=== PATIENT | male | born 1985 | race Caucasian/White ===

== ENCOUNTER 2017-04-08 21:22 | Emergency (ER) | payer MEDICAID ==
[~2017-04-08] VITALS: Ht 172.7 cm; Wt 86.5 kg
[~2017-04-08 21:22] MED LIST: ACET325T33 PO; ACET500T98 PO; AZIT250T94 PO; HYDR-906 PO; IBUP-1542 PO; IBUP200C PO; OMEP20CA16 PO; ONDA4TAB35 PO
[2017-04-08 21:24] VITALS: Ht 172.7 cm; Wt 86.5 kg
[2017-04-08] MEDS ORDERED: morphine 2 MG INJ IV STA (22:42)
[2017-04-08] MEDS ORDERED: ACETAMINOPHEN 500 MG TAB PO STA (22:42)
[2017-04-08] MEDS ORDERED: ONDANSETRON 4 MG INJ IV STA (22:42)
[2017-04-08] MEDS ORDERED: SOD CHLORIDE 0.9% 1,000 ML IV STA (22:42)
--- NOTE | 2017-04-08 23:07 | ERD ---
ER Documentation Chief Complaint Date/Time DATE: 04/08/17 TIME: 23:04 Chief Complaint upper abd pain x 2 days w/ fever HPI 31-year-old male presents here in emergency department for complaints of epigastric pain vomiting and diarrhea that started yesterday. Patient had episodes of vomiting and diarrhea, does not have any blood in the stool or black stool. Patient started to have fever today. Patient describes the pain as sharp pain, 6/10 scale, not better or worse with anything. Patient denies any hematuria or dysuria. Patient did not take any medications to help with symptoms. ROS All systems reviewed and are negative except as per history of present illness. Medications Home Meds Active Scripts Ondansetron (Ondansetron Odt) 4 Mg Tab.rapdis, 4 MG PO Q8 Y for NAUSEA AND/OR VOMITING, #30 TAB Prov:ARI WEN NP 04/09/17 Ibuprofen* (Motrin*) 600 Mg Tab, 600 MG PO Q6H Y for PAIN AND OR ELEVATED TEMP, #30 TAB Prov:ARI WEN NP 04/09/17 Dicyclomine Hcl* (Bentyl*) 10 Mg Capsule, 10 MG PO QID, #20 CAP Prov:ARI WEN NP 04/09/17 Azithromycin* (Zithromax*) 250 Mg Tablet, 250 MG PO DAILY for 4 Days, TAB Prov:MICAELA ODELL MD 11/19/16 Ibuprofen* (Motrin*) 600 Mg Tab, 600 MG PO Q8, #30 TAB Prov:MICAELA ODELL MD 11/19/16 Acetaminophen* (Tylenol*) 325 Mg Tablet, 2 TAB PO Q8 Y for PAIN AND OR ELEVATED TEMP, #20 TAB Prov:MICAELA ODELL MD 11/19/16 Omeprazole* (Omeprazole*) 20 Mg Capsule.dr, 20 MG PO DAILY, #20 Prov:RALPH TAYLOR NP 08/23/16 Hydrocodone/Acetaminophen ([place] 5-325 Tablet) 1 Each Tablet, 1 TAB PO Q6H Y for PAIN, #7 TAB Prov:RALPH TAYLOR NP 08/23/16 Ibuprofen* (Motrin*) 600 Mg Tab, 600 MG PO Q6, #20 TAB Prov:RALPH TAYLOR NP 08/23/16 Ibuprofen* (Ibuprofen*) 200 Mg Capsule, 200 MG PO Q6, #30 CAP 0 Refills Prov:ELEAZAR CARRILLO MIGUEL 11/11/15 Acetaminophen (Tylenol) 500 Mg Tab, 500 MG PO Q6, #30 TAB 0 Refills Prov:ELEAZAR CARRILLO JUNSarahAsia 11/11/15 Ondansetron Hcl* (Zofran* ODT) 4 mg -ODT Tab.disper, 4 MG PO DAILY Y for NAUSEA AND/OR VOMITING, #10 TAB 0 Refills Prov:ELEAZAR CARRILLO PA-C 11/11/15 Allergies Allergies: Coded Allergies: No Known Allergy (Unverified , 05/01/14) PMhx/Soc History of Surgery: No Anesthesia Reaction: No Hx Neurological Disorder: Yes (migraine) Hx Respiratory Disorders: No Hx Cardiac Disorders: No Hx Psychiatric Problems: No Hx Miscellaneous Medical Probl: Yes (hep A as child; kidneystones) Hx Alcohol Use: Yes (occassional) Hx Substance Use: No Hx Tobacco Use: No Smoking Status: Never smoker Physical Exam Vitals Vital Signs Date Time Temp Pulse Resp B/P Pulse Ox O2 Delivery O2 Flow Rate FiO2 04/09/17 00:30 100.3 88 16 133/87 99 Room Air 04/08/17 21:24 100.3 100 20 144/58 98 Physical Exam GENERAL: The patient is well developed and appropriate for usual state of health, in no apparent distress. CHEST: Clear to auscultation bilaterally. There are no rales, wheezes or rhonchi. HEART: Regular rate and rhythm. No murmurs, clicks, rubs or gallops. No S3 or S4. ABDOMEN: Soft, nontender and nondistended. Good bowel sounds. No rebound or guarding. No gross peritonitis. No gross organomegaly or masses. No Cosby sign or McBurney point tenderness. BACK: No midline or flank tenderness. EXTREMITIES: Equal pulses bilaterally. There is no peripheral clubbing, cyanosis or edema. No focal swelling or erythema. Full range of motion. Grossly neurovascularly intact. NEURO: Alert and oriented. Cranial nerves 2-12 intact. Motor strength in all 4 extremities with 5/5 strength. Sensation grossly intact. Normal speech and gait. SKIN: There is no apparent rash or petechia. The skin is warm and dry. HEMATOLOGIC AND LYMPHATIC: There is no evidence of excessive bruising or lymphedema. No gross cervical, axillary, or inguinal lymphadenopathy. Result Diagram: 04/08/17221404/08/172214 Results 24 hrs Laboratory Tests Test 04/08/17 22:15 04/08/17 22:50 White Blood Count 13.110^3/ul Red Blood Count 5.3710^6/ul Hemoglobin 14.4g/dl Hematocrit 39.7% Mean Corpuscular Volume 73.9fl Mean Corpuscular Hemoglobin 26.8pg Mean Corpuscular Hemoglobin Concent 36.3g/dl Red Cell Distribution Width 13.4% Platelet Count 73118^3/UL Mean Platelet Volume 10.4fl Neutrophils % 85.4% Lymphocytes % 8.8% Monocytes % 4.4% Eosinophils % 0.9% Basophils % 0.2% Nucleated Red Blood Cells % 0.0/100WBC Neutrophils # 11.210^3/ul Lymphocytes # 1.210^3/ul Monocytes # 0.610^3/ul Eosinophils # 0.110^3/ul Basophils # 0.010^3/ul Nucleated Red Blood Cells # 0.010^3/ul Sodium Level 137mmol/L Potassium Level 3.8mmol/L Chloride Level 104mmol/L Carbon Dioxide Level 22mmol/L Anion Gap 15 Blood Urea Nitrogen 14mg/dl Creatinine 0.97mg/dl Glucose Level 118mg/dl Calcium Level 8.6mg/dl Total Bilirubin 0.3mg/dl Direct Bilirubin 0.00mg/dl Indirect Bilirubin 0.3mg/dl Aspartate Amino Transf (AST/SGOT) 24IU/L Alanine Aminotransferase (ALT/SGPT) 29IU/L Alkaline Phosphatase 99IU/L Total Protein 7.3g/dl Albumin 4.1g/dl Globulin 3.20g/dl Albumin/Globulin Ratio 1.28 Lipase 47U/L Urine Color LT. YELLOW Urine Clarity CLEAR Urine pH 5.5 Urine Specific Hopkins 1.010 Urine Ketones NEGATIVE Urine Nitrite NEGATIVE Urine Bilirubin NEGATIVE Urine Urobilinogen 0.2 E.U./dL Urine Leukocyte Esterase NEGATIVE Urine Microscopic RBC 2-5/HPF Urine Microscopic WBC 2-5/HPF Urine Hemoglobin 1+ Urine Glucose NEGATIVE% Urine Total Protein NEGATIVE Current Medications Medications (Trade) Dose Ordered Sig/Rakesh Route PRN Reason Start Time Stop Time Status Last Admin Dose Admin Sodium Chloride (NS) 1,000 ml @ 1,000 mls/hr Q1H STAT IV 04/08/17 22:42 04/08/17 23:41 DC 04/08/17 23:08 Morphine Sulfate (morphine) 2 mg ONCE STAT IV 04/08/17 22:42 04/08/17 22:43 DC 04/08/17 23:08 Ondansetron HCl (Zofran Inj) 4 mg ONCE STAT IV 04/08/17 22:42 04/08/17 22:43 DC 04/08/17 23:08 Acetaminophen (Tylenol Tab) 500 mg ONCE STAT PO 04/08/17 22:42 04/08/17 22:43 DC 04/08/17 23:09 Patient was given medication for pain here in emergency department, after treatment, patient verbalized feeling much better. Patient's pain is improved.Patient was given Zofran here in the emergency department. After treatment, patient was able to tolerate po fluids here in the emergency department without any vomiting. There is no signs and symptoms of dehydration. Patient was given medicines for fever control here in the emergency department. After treatment, patient temperature improved and lower. Patient appears well and is hemodynamically stable. Normal saline IV bolus was given here in emergency department for rehydration, patient tolerated IV fluids. PROCEDURE: Abdominal ultrasound, limited. CLINICAL INDICATION: Abdominal pain. TECHNIQUE: Multiple real-time images were acquired of the patient's right upper abdomen utilizing a high resolution transducer. COMPARISON: 08/23/2016. FINDINGS: The liver demonstrates normal echogenicity and size measuring 16.3 cm. There is no focal mass or intrahepatic biliary ductal dilatation. The portal vein is patent. The gallbladder is not distended. No gallstones are identified. There is no pericholecystic fluid or gallbladder wall thickening. The common bile duct measures 3.8 mm in maximal dimension. The visualized portions of the pancreas are unremarkable. The pancreas is partially obscured by overlying bowel gas. No free fluid is identified. The right kidney is normal size and echogenicity measuring 10.3 cm. There is no focal renal mass or echogenic calculus identified. There is no obstructive uropathy. IMPRESSION: Unremarkable right upper abdominal ultrasound. .Shad Purcell MD, MD Date Time Electronically viewed and signed by .Shad Purcell MD, MD on 04/08/2017 23:28 .T/ CC: ARI WEN NP Procedures/MDM Medical Decision Making: Patient's symptoms of abdominal pain and vomiting and diarrhea most likely consistent with viral gastroenteritis. No symptoms of dehydration at this time. No electrolyte noted. LFTs are normal, lipase is normal. There is low suspicion for abdominal emergencies at this time. Patients abdominal exam is normal at this time. Patients radiology exam does not show any abdominal emergencies at this time. There is low suspicion for appendicitis , cholecystitis, abdominal aortic aneurysms or peritonitis at this time. There is low suspicion for sepsis. Patient appears well and is hemodynamically stable. Disposition: Home. Condition: Stable Prescription Bentyl, Zofran, ibuprofen Instructions: Patient is advised to take medications as prescribed. Patient is advised to rest, increase fluid intake and do brat diet for next 1-2 days and progress as tolerated. Patient is advised that if symptoms are worse, severe abdominal pain, uncontrolled vomiting, high fever, severe flank pain, worst signs and symptoms, to return to the emergency department immediately. Otherwise, patient can follow up with primary care doctor in 5-7 days. Departure Diagnosis: Primary Impression: Acute gastroenteritis Condition: Stable Patient Instructions: Gastroenteritis, Viral (6Y-Adult) Additional Instructions: Patient is advised to take medications as prescribed. Patient is advised to rest , increase fluid intake and do brat diet for next 1-2 days and progress as tolerated. Patient is advised that if symptoms are worse, severe abdominal pain , uncontrolled vomiting, high fever, severe flank pain, worst signs and symptoms , to return to the emergency department immediately. Otherwise, patient can follow up with primary care doctor in 5-7 days. ARI WEN NP April 08, 2017 23:07
[2017-04-08 23:25] LABS: ADD SCAN DIFF NO
[2017-04-08 23:27] LABS: BASOPHILS % 0.2 % (0.0-2.0); EOSINOPHILS # 0.1 10^3/ul (0.0-0.5); EOSINOPHILS % 0.9 % (0.0-7.0); HEMATOCRIT 39.7 % (42.0-52.0); HEMOGLOBIN 14.4 g/dl (14.0-18.0); LYMPHOCYTES # 1.2 10^3/ul (0.8-2.9); LYMPHOCYTES % 8.8 % (15.0-51.0); MEAN CORPUSCULAR HEMOGLOBIN 26.8 pg (29.0-33.0); MEAN CORPUSCULAR HGB CONC 36.3 g/dl (32.0-37.0); MEAN CORPUSCULAR VOLUME 73.9 fl (82.0-101.0); MEAN PLATELET VOLUME 10.4 fl (7.4-10.4); MONOCYTE # 0.6 10^3/ul (0.3-0.9); MONOCYTES % 4.4 % (0.0-11.0); NEUTROPHIL # 11.2 10^3/ul (1.6-7.5); NEUTROPHILS % 85.4 % (39.0-77.0); PLATELET COUNT 259 10^3/UL (140-415); RED BLOOD COUNT 5.37 10^6/ul (4.70-6.10); RED CELL DISTRIBUTION WIDTH 13.4 % (11.5-14.5); WHITE BLOOD COUNT 13.1 10^3/ul (4.8-10.8)
[2017-04-08 23:27] LABS: ADD UMIC YES; URINE BILIRUBIN (Dip) NEGATIVE (NEGATIVE); URINE BLOOD (Dip) 1+ (NEGATIVE); URINE COLOR LT. YELLOW (YELLOW); URINE GLUCOSE (Dip) NEGATIVE (NEGATIVE); URINE KETONES (Dip) NEGATIVE (NEGATIVE); URINE LEUKOCYTE ESTERASE (Dip) NEGATIVE (NEGATIVE); URINE NITRITE (Dip) NEGATIVE (NEGATIVE); URINE TOTAL PROTEIN (Dip) NEGATIVE (NEGATIVE); URINE UROBILINOGEN (Dip) 0.2 E.U./dL (0.1-1.0)
--- NOTE | 2017-04-08 23:28 | RADRPT ---
PROCEDURE: Abdominal ultrasound, limited. CLINICAL INDICATION: Abdominal pain. TECHNIQUE: Multiple real-time images were acquired of the patient's right upper abdomen utilizing a high resolution transducer. COMPARISON: 08/23/2016. FINDINGS: The liver demonstrates normal echogenicity and size measuring 16.3 cm. There is no focal mass or in trahepatic biliary ductal dilatation. The portal vein is patent. The gallbladder is not distended. No gallstones are identified. There is no pericholecystic fluid or gallbladder wall thickening. The common bile duct measures 3.8 mm in maximal dimension. The visualized portions of the pancreas are unremarkable. The pancreas is partially obscured by overlying bowel gas. No free fluid is iden tified. The right kidney is normal size and echogenicity measuring 10.3 cm. There is no focal renal mass or echogenic calculus identified. There is no obstructive uropathy. IMPRESSION: Unremarkable right upper abdominal ultrasound. .Shad Purcell MD, MD Date Time Electronically viewed and signed by .Shad Purcell MD, MD on 04/08/2017 23:28 .T/
[2017-04-08 23:51] LABS: ALBUMIN 4.1 g/dl (3.3-4.9); ALBUMIN/GLOBULIN RATIO 1.28; BILIRUBIN,INDIRECT 0.3 mg/dl (0-1.1); BILIRUBIN,TOTAL 0.3 mg/dl (0.2-1.3); CALCIUM 8.6 mg/dl (8.4-10.2); CREATININE 0.97 mg/dl (0.61-1.24); POTASSIUM 3.8 mmol/L (3.5-5.1); TOTAL PROTEIN 7.3 g/dl (6.1-8.1)
[2017-04-09] MEDS ORDERED: DICY10CA60 PO (00:14)
[2017-04-09] MEDS ORDERED: ONDA4TAB14 PO (00:14)
[2017-04-09] MEDS ORDERED: IBUP-1542 PO (00:14)
[2017-04-09 00:30] VITALS: BP 133/87; PULSE 88; RESP 16; TEMP 100.3
== END 2017-04-09 00:30 | disposition home or self-care (01) ==
LOC: FTE 21:22
DX: A08.4 Viral intestinal infection, unspecified (principal)
CPT/HCPCS: 36415; 76705; 80053; 81001; 83690; 85025; 96361; 96374; 96375; J2270; J2405; J7030; Z7502; Z7610; 81003

== ENCOUNTER 2017-07-10 14:41 | Emergency (ER) | payer MEDICAID ==
[~2017-07-10] VITALS: Wt 87.5 kg
[~2017-07-10 14:41] MED LIST changes: +DICY10CA60 PO; +ONDA4TAB14 PO
[2017-07-10] MEDS ORDERED: morphine 4 MG/ML VIAL IV STA (14:54)
[2017-07-10] MEDS ORDERED: ONDANSETRON 4 MG INJ IV STA (14:54)
[2017-07-10 15:24] LABS: BASOPHILS % 0.2 % (0.0-2.0); EOSINOPHILS # 0.1 10^3/ul (0.0-0.5); EOSINOPHILS % 0.6 % (0.0-7.0); HEMATOCRIT 44.3 % (42.0-52.0); LYMPHOCYTES % 10.5 % (15.0-51.0); MEAN CORPUSCULAR HEMOGLOBIN 26.5 pg (29.0-33.0); MEAN CORPUSCULAR HGB CONC 36.1 g/dl (32.0-37.0); MEAN CORPUSCULAR VOLUME 73.5 fl (82.0-101.0); MEAN PLATELET VOLUME 10.1 fl (7.4-10.4); MONOCYTE # 0.4 10^3/ul (0.3-0.9); MONOCYTES % 3.6 % (0.0-11.0); NEUTROPHILS % 84.8 % (39.0-77.0); PLATELET COUNT 310 10^3/UL (140-415); RED BLOOD COUNT 6.03 10^6/ul (4.70-6.10); RED CELL DISTRIBUTION WIDTH 13.8 % (11.5-14.5); WHITE BLOOD COUNT 9.8 10^3/ul (4.8-10.8)
[2017-07-10 15:39] LABS: ADD UMIC YES; UR ASCORBIC ACID 40 mg/dL (NEGATIVE); UR BILIRUBIN (Dip) NEGATIVE (NEGATIVE); UR BLOOD (Dip) 3+ mg/dL (NEGATIVE); UR CLARITY SLIGHTLY CLOUDY (CLEAR); UR COLOR YELLOW (YELLOW); UR GLUCOSE (Dip) NEGATIVE (NEGATIVE); UR KETONES (Dip) TRACE mg/dL (NEGATIVE); UR LEUKOCYTE ESTERASE (Dip) NEGATIVE Leu/ul (NEGATIVE); UR MUCUS FEW /HPF (NONE SEEN); UR NITRITE (Dip) NEGATIVE (NEGATIVE); UR RBC > 182 /HPF (0-5); UR TOTAL PROTEIN (Dip) 1+ mg/dl (NEGATIVE); UR UROBILINOGEN (Dip) NEGATIVE (NEGATIVE)
--- NOTE | 2017-07-10 15:43 | RADRPT ---
PROCEDURE: US Abdomen (right upper quadrant). CLINICAL INDICATION: Pain TECHNIQUE: Multiple real-time longitudinal and transverse images of the right upper quadrant of th e abdomen were acquired utilizing a curved array transducer. Images were reviewed on a high-resoluti on PACS workstation. COMPARISON: 04/08/1970 FINDINGS: Liver: Normal size and echogenicity. No focal mass. Normal hepatopedal flow in the main portal vei n. Gallbladder: Normal. No gallstones identified. Biliary tree: No intra or extrahepatic dilatation. Common duct diameter is 2.6 mm. Pancreas: Obscured by bowel gas. Right kidney: Length measures 9.8 cm. 5 mm echogenic focus is seen in the lower pole, possibly non obstructive calculus. No mass or hydronephrosis is identified. Abdominal aorta and IVC: Obscured by bowel gas. Additional findings: No free fluid. IMPRESSION: 1. Possible nonobstructive 5 mm calculus in the lower pole of the right kidney. No hydronephrosis is seen. 2. Otherwise unremarkable ultrasound exam. No cholelithiasis or cholecystitis. RPTAT: QQ .Trung Qureshi MD, Date Time Electronically viewed and signed by .Trung Qureshi MD, on 07/10/2017 15:43 .R/
[2017-07-10 15:50] LABS: ALBUMIN 4.6 g/dl (3.3-4.9); ALBUMIN/GLOBULIN RATIO 1.31; BILIRUBIN,INDIRECT 0.5 mg/dl (0-1.1); BILIRUBIN,TOTAL 0.5 mg/dl (0.2-1.3); CALCIUM 9.4 mg/dl (8.4-10.2); CREATININE 1.1 mg/dl (0.61-1.24); TOTAL PROTEIN 8.1 g/dl (6.1-8.1)
--- NOTE | 2017-07-10 16:03 | RADRPT ---
PROCEDURE: CT Abdomen and Pelvis without contrast CLINICAL INDICATION: Right upper quadrant pain, history of hepatitis A, kidney stones TECHNIQUE: Transaxial images were obtained through the abdomen and pelvis on a multi-slice scanner without the intravenous contrast administration. No oral contrast had previously been given. Sagit apoorva and coronal re-formations were subsequently reconstructed. One or more of the following dose reduction techniques were used: - Automated exposure control. - Adjustment of the mA and/or kV according to patient size. - Use of iterative reconstruction technique. Radiation dose: CTDIvol = 16.97 mGy; DLP = 913.02 mGy-cm. COMPARISON: Comparison to a previous right upper quadrant abdominal sonogram done earlier on the date. The previous sonogram demonstrated a 5 mm echogenic focus within the inferior pole right kidney suspicious for a nephrolith without hydronephrosis. FINDINGS: Lung bases: The visualized lung bases appear unremarkable. Liver: Normal in size and in attenuation. There is no focal lesion. Gallbladder: The wall is not thickened. No radiopaque stones are identified. Bile ducts: The intra and extrahepatic bile ducts are normal in caliber. Pancreas: Appears normal with no mass or inflammation evident. Spleen: Normal in size with no focal lesion. Adrenals: Normal with no mass identified. Kidneys, ureters and bladder: Several 2 mm nephroliths are seen within the right kidney and there is mild right hydronephrosis/hydroureter to the point of a 5 x 5 x 3 mm ureterolith within the distal third of the right ureter. A 1 mm nonobstructing nephrolith is seen within the inferior pole senia of the left kidney and a 1 mm nonobstructing nephrolith is seen within a superior pole right kidney. There is no hydronephrosis on the right and the right ureter appears normal. The bladder is subop timally distended. Reproductive organs: The prostate is normal in size and a calcification is seen within the prostate to the right of midline. Stomach and bowel: The stomach is moderately distended food debris. There is no evidence of bowel o bstruction or inflammation. Appendix: There are no findings to suggest appendicitis. Peritoneum: No free intraperitoneal fluid or air is identified. There is a small right-sided fat con taining inguinal hernia. Aorta: Normal in caliber with no aneurysmal dilatation. IVC: Unremarkable. Lymph nodes: No pathologically enlarged nodes are identified. Osseous structures: The osseous elements appear intact. IMPRESSION: 1. There is a 5 x 5 x 3 mm ureterolith within the distal third of the right ureter associated with mild right hydronephrosis/hydroureter. Several to 3 mm nephroliths are seen within the right kidney and to 1 mm nonobstructing nephroliths are seen in the left kidney with no hydronephrosis or ureter olithiasis seen on the left. The bladder is suboptimally distended. 2. The stomach is moderately distended with food debris but there is no evidence of bowel obstructi on or inflammation and no evidence of appendicitis. 3. There is no free intraperitoneal fluid or air. 4. Small right-sided fat containing inguinal hernia. Physician Marck Date Time Electronically viewed and signed by Physician Marck on 07/10/2017 16:02 /
[2017-07-10] MEDS ORDERED: IBUP-1542 PO (16:27)
[2017-07-10] MEDS ORDERED: HYDR-906 PO (16:27)
[2017-07-10] MEDS ORDERED: ONDA-43 PO (16:29)
[2017-07-10] MEDS ORDERED: TAMS-14 PO (16:29)
[2017-07-10] MEDS ORDERED: KETOROLAC 30 MG INJ IV STA (16:35)
[2017-07-10 17:15] VITALS: BP 125/73; PULSE 72; RESP 20; TEMP 98.3
--- NOTE | 2017-07-10 19:46 | ERD ---
ER Documentation Chief Complaint Date/Time DATE: 07/10/17 TIME: 19:43 Chief Complaint RUQ ABD PAIN X5 DAYS, NO N/V/D HPI This is a 32-year-old male presents to the ER with right upper quadrant pain over the last 5 days. He denies any nausea vomiting or diarrhea. He denies any fevers or chills. He denies any chest pain or shortness of breath. Right upper quadrant pain is severe and radiates down to his flank. Patient denies any urinary frequency or dysuria he denies any hematuria. Patient has not taken anything for the pain. Patient states that pain is getting worse. ROS 12 point review of systems was done, all negative except per HPI. Medications Home Meds Active Scripts Ondansetron Hcl* (Zofran*) 4 Mg Tab, 4 MG PO Q4H Y for NAUSEA AND OR VOMITING, # 15 TAB Prov:MONO ROQUE 07/10/17 Tamsulosin Hcl* (Flomax*) 0.4 Mg Cap.er.24h, 0.4 MG PO HS for 5 Days, CAP Prov:MONO ROQUE 07/10/17 Hydrocodone/Acetaminophen ([place] 5-325 Tablet) 1 Each Tablet, 1 TAB PO Q6H Y for PAIN, #7 TAB Prov:MONO ROQUE 07/10/17 Ibuprofen* (Motrin*) 600 Mg Tab, 600 MG PO Q6, #30 TAB Prov:MONO ROQUE 07/10/17 Ondansetron (Ondansetron Odt) 4 Mg Tab.rapdis, 4 MG PO Q8 Y for NAUSEA AND/OR VOMITING, #30 TAB Prov:ARI WEN NP 04/09/17 Ibuprofen* (Motrin*) 600 Mg Tab, 600 MG PO Q6H Y for PAIN AND OR ELEVATED TEMP, #30 TAB Prov:ARI WEN NP 04/09/17 Dicyclomine Hcl* (Bentyl*) 10 Mg Capsule, 10 MG PO QID, #20 CAP Prov:ARI WEN NP 04/09/17 Azithromycin* (Zithromax*) 250 Mg Tablet, 250 MG PO DAILY for 4 Days, TAB Prov:MICAELA ODELL MD 11/19/16 Ibuprofen* (Motrin*) 600 Mg Tab, 600 MG PO Q8, #30 TAB Prov:MICAELA ODELL MD 11/19/16 Acetaminophen* (Tylenol*) 325 Mg Tablet, 2 TAB PO Q8 Y for PAIN AND OR ELEVATED TEMP, #20 TAB Prov:MICAELA ODELL MD 11/19/16 Omeprazole* (Omeprazole*) 20 Mg Capsule.dr, 20 MG PO DAILY, #20 Prov:RALPH TAYLOR NP 08/23/16 Hydrocodone/Acetaminophen ([place] 5-325 Tablet) 1 Each Tablet, 1 TAB PO Q6H Y for PAIN, #7 TAB Prov:RALPH TAYLOR NP 08/23/16 Ibuprofen* (Motrin*) 600 Mg Tab, 600 MG PO Q6, #20 TAB Prov:RALPH TAYLOR NP 08/23/16 Ibuprofen* (Ibuprofen*) 200 Mg Capsule, 200 MG PO Q6, #30 CAP 0 Refills Prov:ELEAZAR CARRILLO PA-C 11/11/15 Acetaminophen (Tylenol) 500 Mg Tab, 500 MG PO Q6, #30 TAB 0 Refills Prov:ELEAZAR CARRILLO PA-C 11/11/15 Ondansetron Hcl* (Zofran* ODT) 4 mg -ODT Tab.disper, 4 MG PO DAILY Y for NAUSEA AND/OR VOMITING, #10 TAB 0 Refills Prov:ELEAZAR CARRILLO PA-C 11/11/15 Allergies Allergies: Coded Allergies: No Known Allergy (Unverified , 07/10/17) PMhx/Soc Medical and Surgical Hx: pt denies Medical Hx History of Surgery: No Anesthesia Reaction: No Hx Neurological Disorder: Yes (migraine) Hx Respiratory Disorders: No Hx Cardiac Disorders: No Hx Psychiatric Problems: No Hx Miscellaneous Medical Probl: Yes (hep A as child; kidneystones) Hx Alcohol Use: Yes (occassional) Hx Substance Use: No Hx Tobacco Use: No Smoking Status: Never smoker Physical Exam Vitals Vital Signs Date Time Temp Pulse Resp B/P Pulse Ox O2 Delivery O2 Flow Rate FiO2 07/10/17 17:15 98.3 72 20 125/73 98 Room Air 07/10/17 14:44 97.3 83 17 144/96 98 Physical Exam GENERAL: The patient is well developed and appropriate for usual state of health , in no apparent distress. HEENT: Atraumatic CHEST: Clear to auscultation bilaterally. There are no rales, wheezes or rhonchi. HEART: Regular rate and rhythm. No murmurs, clicks, rubs or gallops. ABDOMEN: Soft, nontender and nondistended. Good bowel sounds. No rebound or guarding. No gross peritonitis. No gross organomegaly or masses. No Cosby sign or McBurney point tenderness. BACK: No midline or flank tenderness. NEURO: Alert and oriented. SKIN: The skin is warm and dry. Result Diagram: 07/10/17 1504 07/10/17 1504 Results 24 hrs Laboratory Tests Test 07/10/17 15:04 07/10/17 15:06 White Blood Count 9.810^3/ul Red Blood Count 6.0310^6/ul Hemoglobin 16.0g/dl Hematocrit 44.3% Mean Corpuscular Volume 73.5fl Mean Corpuscular Hemoglobin 26.5pg Mean Corpuscular Hemoglobin Concent 36.1g/dl Red Cell Distribution Width 13.8% Platelet Count 07641^3/UL Mean Platelet Volume 10.1fl Neutrophils % 84.8% Lymphocytes % 10.5% Monocytes % 3.6% Eosinophils % 0.6% Basophils % 0.2% Nucleated Red Blood Cells % 0.0/100WBC Neutrophils # (Manual) 810^3/ul Lymphocytes # 1.010^3/ul Monocytes # 0.410^3/ul Eosinophils # 0.110^3/ul Basophils # 0.010^3/ul Nucleated Red Blood Cells # 0.010^3/ul Sodium Level 139mmol/L Potassium Level 4.0mmol/L Chloride Level 100mmol/L Carbon Dioxide Level 27mmol/L Anion Gap 16 Blood Urea Nitrogen 15mg/dl Creatinine 1.10mg/dl Glucose Level 124mg/dl Calcium Level 9.4mg/dl Total Bilirubin 0.5mg/dl Direct Bilirubin 0.00mg/dl Indirect Bilirubin 0.5mg/dl Aspartate Amino Transf (AST/SGOT) 25IU/L Alanine Aminotransferase (ALT/SGPT) 39IU/L Alkaline Phosphatase 125IU/L Total Protein 8.1g/dl Albumin 4.6g/dl Globulin 3.50g/dl Albumin/Globulin Ratio 1.31 Lipase 50U/L Urine Color YELLOW Urine Clarity SLIGHTLY CLOUDY Urine pH 6.0 Urine Specific [place] 1.020 Urine Ketones TRACEmg/dL Urine Nitrite NEGATIVEmg/dL Urine Bilirubin NEGATIVEmg/dL Urine Urobilinogen NEGATIVEmg/dL Urine Leukocyte Esterase NEGATIVELeu/ul Urine Microscopic RBC > 182/HPF Urine Microscopic WBC 0/HPF Urine Mucus FEW/HPF Urine Hemoglobin 3+mg/dL Urine Glucose NEGATIVEmg/dL Urine Total Protein 1+mg/dl Current Medications Medications (Trade) Dose Ordered Sig/Rakesh Route PRN Reason Start Time Stop Time Status Last Admin Dose Admin Morphine Sulfate (morphine) 4 mg ONCE STAT IV 07/10/17 14:54 07/10/17 14:56 DC 07/10/17 15:11 Ondansetron HCl (Zofran Inj) 4 mg ONCE STAT IV 07/10/17 14:54 07/10/17 14:56 DC 07/10/17 15:11 Ketorolac Tromethamine (Toradol) 30 mg ONCE STAT IV 07/10/17 16:35 07/10/17 16:36 DC 07/10/17 17:10 [place] [id number] Radiology Main Line: [phone] DIAGNOSTIC IMAGING REPORT Patient: MARY KNIGHT : 1985 Age: 32 Sex: M MR #: [id number] DOS: 07/10/17 1454 Ordering MD: MONO ROQUE PA-C Location: [facility] Room/Bed: PROCEDURE: CT Abdomen and Pelvis without contrast CLINICAL INDICATION: Right upper quadrant pain, history of hepatitis A, kidney stones TECHNIQUE: Transaxial images were obtained through the abdomen and pelvis on a multi-slice scanner without the intravenous contrast administration. No oral contrast had previously been given. Sagittal and coronal re-formations were subsequently reconstructed. One or more of the following dose reduction techniques were used: - Automated exposure control. - Adjustment of the mA and/or kV according to patient size. - Use of iterative reconstruction technique. Radiation dose: CTDIvol = 16.97 mGy; DLP = 913.02 mGy-cm. COMPARISON: Comparison to a previous right upper quadrant abdominal sonogram done earlier on the same date. The previous sonogram demonstrated a 5 mm echogenic focus within the inferior pole right kidney suspicious for a nephrolith without hydronephrosis. FINDINGS: Lung bases: The visualized lung bases appear unremarkable. Liver: Normal in size and in attenuation. There is no focal lesion. Gallbladder: The wall is not thickened. No radiopaque stones are identified. Bile ducts: The intra and extrahepatic bile ducts are normal in caliber. Pancreas: Appears normal with no mass or inflammation evident. Spleen: Normal in size with no focal lesion. Adrenals: Normal with no mass identified. Kidneys, ureters and bladder: Several 2 mm nephroliths are seen within the right kidney and there is mild right hydronephrosis/hydroureter to the point of a 5 x 5 x 3 mm ureterolith within the distal third of the right ureter. A 1 mm nonobstructing nephrolith is seen within the inferior pole senia of the left kidney and a 1 mm nonobstructing nephrolith is seen within a superior pole right kidney. There is no hydronephrosis on the right and the right ureter appears normal. The bladder is suboptimally distended. Reproductive organs: The prostate is normal in size and a calcification is seen within the prostate to the right of midline. Stomach and bowel: The stomach is moderately distended food debris. There is no evidence of bowel obstruction or inflammation. Appendix: There are no findings to suggest appendicitis. Peritoneum: No free intraperitoneal fluid or air is identified. There is a small right-sided fat containing inguinal hernia. Aorta: Normal in caliber with no aneurysmal dilatation. IVC: Unremarkable. Lymph nodes: No pathologically enlarged nodes are identified. Osseous structures: The osseous elements appear intact. IMPRESSION: 1. There is a 5 x 5 x 3 mm ureterolith within the distal third of the right ureter associated with mild right hydronephrosis/hydroureter. Several to 3 mm nephroliths are seen within the right kidney and to 1 mm nonobstructing nephroliths are seen in the left kidney with no hydronephrosis or ureterolithiasis seen on the left. The bladder is suboptimally distended. 2. The stomach is moderately distended with food debris but there is no evidence of bowel obstruction or inflammation and no evidence of appendicitis. 3. There is no free intraperitoneal fluid or air. 4. Small right-sided fat containing inguinal hernia. Physician Marck Date Time Electronically viewed and signed by Physician Marck on 07/10/2017 16:02 RH/ CC: MONO ROQUE [place] [id number] Radiology Main Line: [phone] DIAGNOSTIC IMAGING REPORT Patient: MARY KNIGHT : 1985 Age: 32 Sex: M MR #: [id number] DOS: 07/10/17 1454 Ordering MD: MONO ROQUE PA-C Location: [facility] Room/Bed: PROCEDURE: US Abdomen (right upper quadrant). CLINICAL INDICATION: Pain TECHNIQUE: Multiple real-time longitudinal and transverse images of the right upper quadrant of the abdomen were acquired utilizing a curved array transducer. Images were reviewed on a high-resolution PACS workstation. COMPARISON: 04/08/1970 FINDINGS: Liver: Normal size and echogenicity. No focal mass. Normal hepatopedal flow in the main portal vein. Gallbladder: Normal. No gallstones identified. Biliary tree: No intra or extrahepatic dilatation. Common duct diameter is 2.6 mm. Pancreas: Obscured by bowel gas. Right kidney: Length measures 9.8 cm. 5 mm echogenic focus is seen in the lower pole, possibly nonobstructive calculus. No mass or hydronephrosis is identified. Abdominal aorta and IVC: Obscured by bowel gas. Additional findings: No free fluid. IMPRESSION: 1. Possible nonobstructive 5 mm calculus in the lower pole of the right kidney. No hydronephrosis is seen. 2. Otherwise unremarkable ultrasound exam. No cholelithiasis or cholecystitis. RPTAT: QQ .Trung Qureshi MD, Date Time Electronically viewed and signed by .Trung Qureshi MD, on 07/10/2017 15: 43 .R/ CC: MONO ROQUE Procedures/MDM Differential Diagnosis: GERD, gastritis, peptic ulcer disease, pancreatitis, cholecystitis, choledocholithiasis, biliary colic, cholangitis, [id number]-[id number]-Moqqam , ACS/MO, Pnuemonia , nephrolithiasis. This is a 32-year-old male presents to the ER with right upper quadrant pain that radiates to his flank. Patient does have nephrolithiasis, suspicion for obstructive stone is low. Suspicion for septic stone is also low as he is afebrile and extremely well-appearing. Patient's pain was controlled here in the ER. She will be sent home with ibuprofen, [place], Zofran, Flomax. He is to follow-up with his primary care doctor within 1-2 days return to ER sooner if symptoms worsen. My medical decision making sure with the patient understands and agrees with plan. Departure Diagnosis: Primary Impression: Kidney stones Condition: Stable Patient Instructions: Kidney Stone W/ Colic Additional Instructions: Llame al doctor MAJESSICA y chung brendon MADISYN PARA DENTRO DE 1-2 RODRIGUEZ.Dgale a la secretaria que nosotros le instruimos hacer esta madisyn.Avise o llame si coronel condicin se empeora antes de la madisyn. Regresa aqui si peor o no mejor. MONO ROQUE Jul 10, 2017 19:46
== END 2017-07-10 17:16 | disposition home or self-care (01) ==
LOC: FTE 14:41
DX: N20.0 Calculus of kidney (principal)
CPT/HCPCS: 36415; 74176; 76705; 80053; 81001; 83690; 85025; 96374; 96375; J1885; J2270; J2405; Z7502

== ENCOUNTER 2017-07-14 18:37 | Inpatient (IN) | payer MEDICAID ==
[~2017-07-14] VITALS: Ht 162.6 cm; Wt 89.0 kg
[~2017-07-14 18:37] MED LIST changes: +ONDA-43 PO; +TAMS-14 PO
[2017-07-14] MEDS ORDERED: SOD CHLORIDE 0.9% 1,000 ML IV STA (20:06)
[2017-07-14] MEDS ORDERED: morphine 4 MG/ML VIAL IV STA (20:06)
[2017-07-14] MEDS ORDERED: ONDANSETRON 4 MG INJ IV STA (20:06)
--- NOTE | 2017-07-14 20:14 | ERD ---
ER Documentation Chief Complaint Date/Time DATE: 07/14/17 TIME: 20:10 Chief Complaint mid abd pain x 2 weeks HPI 32-year-old male presents here in emergency department for complaints of midepigastric pain for 2 days now. Patient was seen here 4 days ago for a different problem, patient was diagnosed of kidney stones, patient was given some pain medications which he also took her home, patient took Callender at home for pain. Patient describes the pain now in the epigastric area and describes it as different as before eat patient describes the pain as sharp pain, 6/10 scale, is accompanied with vomiting. Patient denies any fever or chills. Patient denies any diarrhea or constipation. Patient took Callender at home with only mild relief. ROS All systems reviewed and are negative except as per history of present illness. Medications Home Meds Active Scripts Ondansetron Hcl* (Zofran*) 4 Mg Tab, 4 MG PO Q4H Y for NAUSEA AND OR VOMITING, # 15 TAB Prov:MONO ROQUE 07/10/17 Tamsulosin Hcl* (Flomax*) 0.4 Mg Cap.er.24h, 0.4 MG PO HS for 5 Days, CAP Prov:MONO ROQUE 07/10/17 Hydrocodone/Acetaminophen ([place] 5-325 Tablet) 1 Each Tablet, 1 TAB PO Q6H Y for PAIN, #7 TAB Prov:MONO ROQUE 07/10/17 Ibuprofen* (Motrin*) 600 Mg Tab, 600 MG PO Q6, #30 TAB Prov:MONO ROQUE 07/10/17 Ondansetron (Ondansetron Odt) 4 Mg Tab.rapdis, 4 MG PO Q8 Y for NAUSEA AND/OR VOMITING, #30 TAB Prov:KATHY WEN NP 04/09/17 Ibuprofen* (Motrin*) 600 Mg Tab, 600 MG PO Q6H Y for PAIN AND OR ELEVATED TEMP, #30 TAB Prov:KATHY WEN NP 04/09/17 Dicyclomine Hcl* (Bentyl*) 10 Mg Capsule, 10 MG PO QID, #20 CAP Prov:KATHY WEN NP 04/09/17 Azithromycin* (Zithromax*) 250 Mg Tablet, 250 MG PO DAILY for 4 Days, TAB Prov:OSTICK,MICAELA MD 11/19/16 Ibuprofen* (Motrin*) 600 Mg Tab, 600 MG PO Q8, #30 TAB Prov:MICAELA ODELL MD 11/19/16 Acetaminophen* (Tylenol*) 325 Mg Tablet, 2 TAB PO Q8 Y for PAIN AND OR ELEVATED TEMP, #20 TAB Prov:MICAELA ODELL MD 11/19/16 Omeprazole* (Omeprazole*) 20 Mg Capsule.dr, 20 MG PO DAILY, #20 Prov:RALPH TAYLOR NP 08/23/16 Hydrocodone/Acetaminophen ([place] 5-325 Tablet) 1 Each Tablet, 1 TAB PO Q6H Y for PAIN, #7 TAB Prov:RALPH TAYLOR NP 08/23/16 Ibuprofen* (Motrin*) 600 Mg Tab, 600 MG PO Q6, #20 TAB Prov:RALPH TAYLOR NP 08/23/16 Ibuprofen* (Ibuprofen*) 200 Mg Capsule, 200 MG PO Q6, #30 CAP 0 Refills Prov:ELEAZAR CARRILLO PA-C 11/11/15 Acetaminophen (Tylenol) 500 Mg Tab, 500 MG PO Q6, #30 TAB 0 Refills Prov:ELEAZAR CARRILLO PA-C 11/11/15 Ondansetron Hcl* (Zofran* ODT) 4 mg -ODT Tab.disper, 4 MG PO DAILY Y for NAUSEA AND/OR VOMITING, #10 TAB 0 Refills Prov:ELEAZAR CARRILLO PA-C 11/11/15 Allergies Allergies: Coded Allergies: No Known Allergy (Unverified , 07/10/17) PMhx/Soc Medical and Surgical Hx: pt denies Surgical Hx History of Surgery: No Anesthesia Reaction: No Hx Neurological Disorder: Yes (migraine) Hx Respiratory Disorders: No Hx Cardiac Disorders: No Hx Psychiatric Problems: No Hx Miscellaneous Medical Probl: Yes (hep A as child; kidneystones) Hx Alcohol Use: Yes (occassional) Hx Substance Use: No Hx Tobacco Use: No Smoking Status: Never smoker FmHx Family History: No coronary disease, No diabetes, No other Physical Exam Vitals Vital Signs Date Time Temp Pulse Resp B/P Pulse Ox O2 Delivery O2 Flow Rate FiO2 07/14/17 18:45 99.2 90 20 159/90 100 Physical Exam GENERAL: The patient is well developed and appropriate for usual state of health, in no apparent distress. CHEST: Clear to auscultation bilaterally. There are no rales, wheezes or rhonchi. HEART: Regular rate and rhythm. No murmurs, clicks, rubs or gallops. No S3 or S4. ABDOMEN: Soft, nontender and nondistended. Good bowel sounds. No rebound or guarding. No gross peritonitis. No gross organomegaly or masses. No Cosby sign or McBurney point tenderness. BACK: No midline or flank tenderness. EXTREMITIES: Equal pulses bilaterally. There is no peripheral clubbing, cyanosis or edema. No focal swelling or erythema. Full range of motion. Grossly neurovascularly intact. NEURO: Alert and oriented. Cranial nerves 2-12 intact. Motor strength in all 4 extremities with 5/5 strength. Sensation grossly intact. Normal speech and gait. SKIN: There is no apparent rash or petechia. The skin is warm and dry. HEMATOLOGIC AND LYMPHATIC: There is no evidence of excessive bruising or lymphedema. No gross cervical, axillary, or inguinal lymphadenopathy. Result Diagram: 07/14/17202707/14/172027 Results 24 hrs Laboratory Tests Test 07/14/17 20:20 07/14/17 20:28 Urine Color STRAW Urine Clarity CLEAR Urine pH 6.0 Urine Specific [place] 1.011 Urine Ketones NEGATIVEmg/dL Urine Nitrite NEGATIVEmg/dL Urine Bilirubin NEGATIVEmg/dL Urine Urobilinogen NEGATIVEmg/dL Urine Leukocyte Esterase NEGATIVELeu/ul Urine Microscopic RBC 30/HPF Urine Microscopic WBC 3/HPF Urine Hemoglobin 2+mg/dL Urine Glucose NEGATIVEmg/dL Urine Total Protein NEGATIVEmg/dl White Blood Count 14.910^3/ul Red Blood Count 5.4610^6/ul Hemoglobin 14.4g/dl Hematocrit 40.1% Mean Corpuscular Volume 73.4fl Mean Corpuscular Hemoglobin 26.4pg Mean Corpuscular Hemoglobin Concent 35.9g/dl Red Cell Distribution Width 13.7% Platelet Count 49551^3/UL Mean Platelet Volume 10.0fl Neutrophils % 86.4% Lymphocytes % 6.7% Monocytes % 5.6% Eosinophils % 0.7% Basophils % 0.3% Nucleated Red Blood Cells % 0.0/100WBC Neutrophils # (Manual) 1310^3/ul Lymphocytes # 1.010^3/ul Monocytes # 0.810^3/ul Eosinophils # 0.110^3/ul Basophils # 0.010^3/ul Nucleated Red Blood Cells # 0.010^3/ul Sodium Level 142mmol/L Potassium Level 3.8mmol/L Chloride Level 95mmol/L Carbon Dioxide Level 29mmol/L Anion Gap 22 Blood Urea Nitrogen 13mg/dl Creatinine 0.92mg/dl Glucose Level 104mg/dl Calcium Level 9.4mg/dl Total Bilirubin 0.4mg/dl Direct Bilirubin 0.00mg/dl Indirect Bilirubin 0.4mg/dl Aspartate Amino Transf (AST/SGOT) 25IU/L Alanine Aminotransferase (ALT/SGPT) 35IU/L Alkaline Phosphatase 119IU/L Total Protein 8.2g/dl Albumin 4.3g/dl Globulin 3.90g/dl Albumin/Globulin Ratio 1.10 Lipase 53U/L Current Medications Medications (Trade) Dose Ordered Sig/Rakesh Route PRN Reason Start Time Stop Time Status Last Admin Dose Admin Sodium Chloride (NS) 1,000 ml @ 1,000 mls/hr Q1H STAT IV 07/14/17 20:06 07/14/17 21:05 DC 07/14/17 20:29 Morphine Sulfate (morphine) 4 mg ONCE STAT IV 07/14/17 20:06 07/14/17 20:09 DC 07/14/17 20:28 Ondansetron HCl (Zofran Inj) 4 mg ONCE STAT IV 07/14/17 20:06 07/14/17 20:09 DC 07/14/17 20:28 IV Flush 10 ml 10 ml STK-MED ONCE .ROUTE 07/14/17 21:12 07/14/17 21:13 DC Sodium Chloride (NS) 100 ml @ ud STK-MED ONCE .ROUTE 07/14/17 21:12 07/14/17 21:13 DC Iohexol 150 ml 150 ml STK-MED ONCE .ROUTE 07/14/17 21:12 07/14/17 21:13 DC Piperacillin Sod/ Tazobactam Sod (Zosyn 3.375gm/ 100 ml (Pmx)) 100 ml @ 200 mls/hr ONCE ONCE IVPB 07/14/17 23:00 07/14/17 23:29 UNV Patient was given medication for pain here in emergency department, after treatment, patient verbalized feeling much better. Patient's pain is improved.Patient was given Zofran here in the emergency department. After treatment, patient was able to tolerate po fluids here in the emergency department without any vomiting. There is no signs and symptoms of dehydration. Normal saline IV bolus was given here in emergency department for rehydration, patient tolerated IV fluids. PROCEDURE: CT Abdomen and pelvis with contrast. CLINICAL INDICATION: Abdominal pain. TECHNIQUE: CT scan of the abdomen and pelvis with contrast was performed on a multi-detector high-resolution CT scanner. The patient was scanned following the uncomplicated administration of 80 cc of Omnipaque 300 intravenous contrast. Coronal and sagittal reformatted images were obtained from the axial source images. Images were reviewed on a high-resolution PACS workstation. One or more of the following dose reduction techniques were used: - Automated exposure control. - Adjustment of the mA and/or kV according to patient size. - Use of iterative reconstruction technique. Exam CTD/vol = 14.77 mGy. Total exam DLP = 835.18 mGy-cm. COMPARISON: 07/10/2017. FINDINGS: Evaluation of the lung bases demonstrates mild bibasilar atelectasis. Abdomen: The liver is normal in size. There is no focal mass or dilatation of the biliary tree. The gallbladder is not distended. The spleen, pancreas and bilateral adrenal glands are within normal limits. Bilateral kidneys are normal in size with no focal renal mass identified. There is mild right-sided hydronephrosis with mild delayed right renal cortical enhancement. There is a calculus within the right mid ureter measuring 5 x 3 mm. There is no retroperitoneal adenopathy. The abdominal aorta is of normal caliber. There is a distended appendix extending medial to the cecum measuring up to 13 mm in diameter with mild adjacent stranding. There is moderate retained stool within the colon. There is no bowel obstruction or free air. There is no diverticulosis or diverticulitis. There is no ascites. Pelvis: The bladder is unremarkable. The prostate and seminal vesicles are within normal limits. There is no significant pelvic adenopathy or free fluid. Evaluation of the osseous structures demonstrates no suspicious lytic or blastic lesion. IMPRESSION: Right mid ureteral 5 x 3 mm calculus with mild right-sided hydronephrosis, unchanged from 07/10/2017. Acute appendicitis, new compared with the prior study. Moderate retained stool within the colon. Mild bibasilar atelectasis. A call report was made to Kathy Wen at 10:50 p.m. .Shad Purcell MD, Date Time Electronically viewed and signed by .Shad Purcell MD, on 07/14/2017 22:52 Procedures/MDM Medical Decision Making: Patient symptoms of pain was like is consistent with acute appendicitis is in the CT scan, this is new compared to the CT scan done 4 days ago, patient also has a kidney stone that may be causing some colic. No symptoms of any urinary tract infection at this time. I spoke with my attending physician, Dr. Romero will facilitate patient's admission to the hospital. Patient is stable at this time. Pain is controlled at this time. Departure Diagnosis: Primary Impression: Appendicitis Appendicitis type: acute appendicitis Acute appendicitis type: unspecified acute appendicitis type Qualified Code: K35.80 - Acute appendicitis, unspecified acute appendicitis type Additional Impression: Renal colic Condition: KATHY Toney NP Jul 14, 2017 20:14
[2017-07-14 20:55] LABS: BASOPHILS % 0.3 % (0.0-2.0); EOSINOPHILS # 0.1 10^3/ul (0.0-0.5); EOSINOPHILS % 0.7 % (0.0-7.0); HEMATOCRIT 40.1 % (42.0-52.0); HEMOGLOBIN 14.4 g/dl (14.0-18.0); LYMPHOCYTES % 6.7 % (15.0-51.0); MEAN CORPUSCULAR HEMOGLOBIN 26.4 pg (29.0-33.0); MEAN CORPUSCULAR HGB CONC 35.9 g/dl (32.0-37.0); MEAN CORPUSCULAR VOLUME 73.4 fl (82.0-101.0); MONOCYTE # 0.8 10^3/ul (0.3-0.9); MONOCYTES % 5.6 % (0.0-11.0); NEUTROPHILS % 86.4 % (39.0-77.0); PLATELET COUNT 284 10^3/UL (140-415); RED BLOOD COUNT 5.46 10^6/ul (4.70-6.10); RED CELL DISTRIBUTION WIDTH 13.7 % (11.5-14.5); WHITE BLOOD COUNT 14.9 10^3/ul (4.8-10.8)
[2017-07-14] MEDS ORDERED: SOD CHLORIDE 0.9% 100 ML ONE (21:12)
[2017-07-14] MEDS ORDERED: IOHEXOL 300MG/ML 150 ML BTL ONE (21:12)
[2017-07-14 21:24] LABS: ALBUMIN 4.3 g/dl (3.3-4.9); ALBUMIN/GLOBULIN RATIO 1.1; BILIRUBIN,INDIRECT 0.4 mg/dl (0-1.1); BILIRUBIN,TOTAL 0.4 mg/dl (0.2-1.3); CALCIUM 9.4 mg/dl (8.4-10.2); CREATININE 0.92 mg/dl (0.61-1.24); POTASSIUM 3.8 mmol/L (3.5-5.1); TOTAL PROTEIN 8.2 g/dl (6.1-8.1)
[2017-07-14 21:26] LABS: ADD UMIC YES; UR ASCORBIC ACID NEGATIVE (NEGATIVE); UR BILIRUBIN (Dip) NEGATIVE (NEGATIVE); UR BLOOD (Dip) 2+ mg/dL (NEGATIVE); UR CLARITY CLEAR (CLEAR); UR COLOR STRAW (YELLOW); UR GLUCOSE (Dip) NEGATIVE (NEGATIVE); UR KETONES (Dip) NEGATIVE (NEGATIVE); UR LEUKOCYTE ESTERASE (Dip) NEGATIVE Leu/ul (NEGATIVE); UR NITRITE (Dip) NEGATIVE (NEGATIVE); UR RBC 30 /HPF (0-5); UR SPECIFIC GRAVITY (Dip) 1.011 (1.003-1.030); UR TOTAL PROTEIN (Dip) NEGATIVE (NEGATIVE); UR UROBILINOGEN (Dip) NEGATIVE (NEGATIVE)
--- NOTE | 2017-07-14 22:53 | RADRPT ---
PROCEDURE: CT Abdomen and pelvis with contrast. CLINICAL INDICATION: Abdominal pain. TECHNIQUE: CT scan of the abdomen and pelvis with contrast was performed on a multi-detector high -resolution CT scanner. The patient was scanned following the uncomplicated administration of 80 cc of Omnipaque 300 intravenous contrast. Coronal and sagittal reformatted images were obtained from the axial source images. Images were reviewed on a high-resolution PACS workstation. One or more of the following dose reduction techniques were used: - Automated exposure control. - Adjustment of the mA and/or kV according to patient size. - Use of iterative reconstruction technique. Exam CTD/vol = 14.77 mGy. Total exam DLP = 835.18 mGy-cm. COMPARISON: 07/10/2017. FINDINGS: Evaluation of the lung bases demonstrates mild bibasilar atelectasis. Abdomen: The liver is normal in size. There is no focal mass or dilatation of the biliary tree. T he gallbladder is not distended. The spleen, pancreas and bilateral adrenal glands are within dez l limits. Bilateral kidneys are normal in size with no focal renal mass identified. There is mild right-sided hydronephrosis with mild delayed right renal cortical enhancement. There is a calculus w ithin the right mid ureter measuring 5 x 3 mm. There is no retroperitoneal adenopathy. The abdomina l aorta is of normal caliber. There is a distended appendix extending medial to the cecum measuring up to 13 mm in diameter with m ild adjacent stranding. There is moderate retained stool within the colon. There is no bowel obstr uction or free air. There is no diverticulosis or diverticulitis. There is no ascites. Pelvis: The bladder is unremarkable. The prostate and seminal vesicles are within normal limits. There is no significant pelvic adenopathy or free fluid. Evaluation of the osseous structures demonstrates no suspicious lytic or blastic lesion. IMPRESSION: Right mid ureteral 5 x 3 mm calculus with mild right-sided hydronephrosis, unchanged from 07/10/2017 . Acute appendicitis, new compared with the prior study. Moderate retained stool within the colon. Mild bibasilar atelectasis. A call report was made to Kathy Catherine at 10:50 p.m. .Shad Purcell MD, MD Date Time Electronically viewed and signed by .Shad Purcell MD, MD on 07/14/2017 22:52 .T/
[2017-07-14] MEDS ORDERED: HYDROmorphONE 1 MG/ML SYG IV ONE (22:59)
[2017-07-14] MEDS ORDERED: ACETAMINOPHEN 500 MG TAB PO STA (23:00)
[2017-07-14] MEDS ORDERED: PIPER-TAZO 3.375 GM IV (PMX) 100 ML IVPB ONE (23:00)
[2017-07-15] VITALS (23 sets, daily range): BP systolic 105–148; BP diastolic 68–84; PULSE 62–84; RESP 17–27; TEMP 99.5; Ht 162.6 cm; Wt 89.0 kg
--- NOTE | 2017-07-15 00:14 | HP ---
Date/Time of Note Date/Time of Note DATE: 07/15/17 TIME: 00:11 Assessment/Plan VTE Prophylaxis VTE Prophylaxis Intervention: SCD's Assessment/Plan Assessment/Plan 32 yo M with abd pain managed as follows: 1. Acute appendicitis 2. Right mid ureteral 5 x 3 mm calculus with mild right-sided hydronephrosis, unchanged from 07/10/2017. 3. chronic migraines PLAN: Admit med surg NPO+meds, IVF, pain meds, antiemetics Gen surg consult with DR Guajardo by ER Empiric abx pending sx May benefit from urologic review if stone remains unchanged post surgery supportive care Plan of care has been discussed with patient, questions answered and patient has verbalized understanding. HPI/ROS Admit Date/Time Admit Date/Time 07/15/17 Hx of Present Illness 32-year-old male who had presented to the emergency room with because of epigastric pain that has now localized to his right lower quadrant over the last 2 days. He was diagnosed with kidney stone 4 days ago in this emergency room sent home with pain medications which did not help this new pain. Patient reports pain is not the same as before. A CT scan in the emergency room did confirm the presence of kidney stones but also shows acute appendicitis. Patient is being admitted for surgical review and possible appendectomy and evaluation of kidney stone and hydronephrosis. PMH/Family/Social Past Medical History * migraines * Kidney stones Past Surgical History Past Surgical Hx: no surgical history Social History Alcohol Use: none Smoking Status: Never smoker Exam/Review of Systems Vital Signs Vitals VS - Last 72 Hours, by Label Date Time Temp Pulse Resp B/P Pulse Ox O2 Delivery O2 Flow Rate FiO2 07/14/17 23:52 100.5 73 17 130/77 99 Room Air 07/14/17 22:50 100.7 07/14/17 22:00 92 17 139/89 97 Room Air 07/14/17 18:45 99.2 90 20 159/90 100 Vital Signs Date Time Temp Pulse Resp B/P Pulse Ox O2 Delivery O2 Flow Rate FiO2 07/14/17 23:52 100.5 73 17 130/77 99 Room Air Exam Constitutional: alert Psych: no complaints Head: atraumatic, normocephalic Eyes: PERRL ENMT: mucosa pink and moist Neck: supple Respiratory: clear to auscultation Cardiovascular: regular rate and rhythm Gastrointestinal: bowel sounds, rebound or guarding (mild), soft, tender (RLQ) Musculoskeletal: nl extremities to inspection Labs Result Diagram: 07/14/17202707/14/172027 Procedures Procedures Laboratory Tests Test 07/14/17 20:20 07/14/17 20:28 Urine Color STRAW Urine Clarity CLEAR Urine pH 6.0 Urine Specific [place] 1.011 Urine Ketones NEGATIVEmg/dL Urine Nitrite NEGATIVEmg/dL Urine Bilirubin NEGATIVEmg/dL Urine Urobilinogen NEGATIVEmg/dL Urine Leukocyte Esterase NEGATIVELeu/ul Urine Microscopic RBC 30/HPF Urine Microscopic WBC 3/HPF Urine Hemoglobin 2+mg/dL Urine Glucose NEGATIVEmg/dL Urine Total Protein NEGATIVEmg/dl White Blood Count 14.910^3/ul Red Blood Count 5.4610^6/ul Hemoglobin 14.4g/dl Hematocrit 40.1% Mean Corpuscular Volume 73.4fl Mean Corpuscular Hemoglobin 26.4pg Mean Corpuscular Hemoglobin Concent 35.9g/dl Red Cell Distribution Width 13.7% Platelet Count 89910^3/UL Mean Platelet Volume 10.0fl Neutrophils % 86.4% Lymphocytes % 6.7% Monocytes % 5.6% Eosinophils % 0.7% Basophils % 0.3% Nucleated Red Blood Cells % 0.0/100WBC Neutrophils # (Manual) 1310^3/ul Lymphocytes # 1.010^3/ul Monocytes # 0.810^3/ul Eosinophils # 0.110^3/ul Basophils # 0.010^3/ul Nucleated Red Blood Cells # 0.010^3/ul Sodium Level 142mmol/L Potassium Level 3.8mmol/L Chloride Level 95mmol/L Carbon Dioxide Level 29mmol/L Anion Gap 22 Blood Urea Nitrogen 13mg/dl Creatinine 0.92mg/dl Glucose Level 104mg/dl Calcium Level 9.4mg/dl Total Bilirubin 0.4mg/dl Direct Bilirubin 0.00mg/dl Indirect Bilirubin 0.4mg/dl Aspartate Amino Transf (AST/SGOT) 25IU/L Alanine Aminotransferase (ALT/SGPT) 35IU/L Alkaline Phosphatase 119IU/L Total Protein 8.2g/dl Albumin 4.3g/dl Globulin 3.90g/dl Albumin/Globulin Ratio 1.10 Lipase 53U/L Current Medications Medications (Trade) Dose Ordered Sig/Rakesh Route PRN Reason Start Time Stop Time Status Last Admin Dose Admin Sodium Chloride (NS) 1,000 ml @ 1,000 mls/hr Q1H STAT IV 07/14/17 20:06 07/14/17 21:05 DC 07/14/17 20:29 1,000 MLS/HR Morphine Sulfate (morphine) 4 mg ONCE STAT IV 07/14/17 20:06 07/14/17 20:09 DC 07/14/17 20:28 4 MG Ondansetron HCl (Zofran Inj) 4 mg ONCE STAT IV 07/14/17 20:06 07/14/17 20:09 DC 07/14/17 20:28 4 MG IV Flush 10 ml 10 ml STK-MED ONCE .ROUTE 07/14/17 21:12 07/14/17 21:13 DC Sodium Chloride (NS) 100 ml @ ud STK-MED ONCE .ROUTE 07/14/17 21:12 07/14/17 21:13 DC Iohexol 150 ml 150 ml STK-MED ONCE .ROUTE 07/14/17 21:12 07/14/17 21:13 DC Piperacillin Sod/ Tazobactam Sod (Zosyn 3.375gm/ 100 ml (Pmx)) 100 ml @ 200 mls/hr ONCE ONCE IVPB 07/14/17 23:00 07/14/17 23:29 DC 07/14/17 23:08 200 MLS/HR Hydromorphone HCl (Dilaudid) 1 mg ONCE ONCE IV 07/14/17 22:59 07/14/17 23:00 DC 07/14/17 23:06 1 MG Acetaminophen (Tylenol Tab) 500 mg ONCE STAT PO 07/14/17 23:00 07/14/17 23:01 DC 07/14/17 23:05 500 MG PROCEDURE: CT Abdomen and pelvis with contrast. CLINICAL INDICATION: Abdominal pain. TECHNIQUE: CT scan of the abdomen and pelvis with contrast was performed on a multi-detector high-resolution CT scanner. The patient was scanned following the uncomplicated administration of 80 cc of Omnipaque 300 intravenous contrast. Coronal and sagittal reformatted images were obtained from the axial source images. Images were reviewed on a high-resolution PACS workstation. One or more of the following dose reduction techniques were used: - Automated exposure control. - Adjustment of the mA and/or kV according to patient size. - Use of iterative reconstruction technique. Exam CTD/vol = 14.77 mGy. Total exam DLP = 835.18 mGy-cm. COMPARISON: 07/10/2017. FINDINGS: Evaluation of the lung bases demonstrates mild bibasilar atelectasis. Abdomen: The liver is normal in size. There is no focal mass or dilatation of the biliary tree. The gallbladder is not distended. The spleen, pancreas and bilateral adrenal glands are within normal limits. Bilateral kidneys are normal in size with no focal renal mass identified. There is mild right-sided hydronephrosis with mild delayed right renal cortical enhancement. There is a calculus within the right mid ureter measuring 5 x 3 mm. There is no retroperitoneal adenopathy. The abdominal aorta is of normal caliber. There is a distended appendix extending medial to the cecum measuring up to 13 mm in diameter with mild adjacent stranding. There is moderate retained stool within the colon. There is no bowel obstruction or free air. There is no diverticulosis or diverticulitis. There is no ascites. Pelvis: The bladder is unremarkable. The prostate and seminal vesicles are within normal limits. There is no significant pelvic adenopathy or free fluid. Evaluation of the osseous structures demonstrates no suspicious lytic or blastic lesion. IMPRESSION: Right mid ureteral 5 x 3 mm calculus with mild right-sided hydronephrosis, unchanged from 07/10/2017. Acute appendicitis, new compared with the prior study. Moderate retained stool within the colon. Mild bibasilar atelectasis. A call report was made to Kathy Catherine at 10:50 p.m. .Shad Purcell MD, MD Date Time Electronically viewed and signed by .Shad Purcell MD, on 07/14/2017 22:52 ISSA IBARRA Jul 15, 2017 00:14
[2017-07-15] MEDS ORDERED: morphine 4 MG/ML VIAL IV PRN (00:30)
[2017-07-15] MEDS ORDERED: ONDANSETRON 4 MG INJ IV PRN (00:30)
[2017-07-15] MEDS: LEVOFLOXACIN 500MG/D5W (PMX) 100 ML IVPB SCH ×2 (03:15→23:51)
[2017-07-15] MEDS: SOD CHLORIDE 0.9% 1,000 ML IV SCH ×4 (03:15→21:26)
[2017-07-15] MEDS ORDERED: SUMATRIPTAN 50 MG TAB PO PRN (06:00)
[2017-07-15] MEDS: metroNIDAZOLE 500 MG/NS (PMX) 100 ML IVPB SCH ×3 (06:27→21:23)
[2017-07-15] MEDS ORDERED: SEVOFLURANE 15 MIN ONE (07:00)
[2017-07-15 07:57] LABS: BASOPHILS % 0.2 % (0.0-2.0); EOSINOPHILS # 0.1 10^3/ul (0.0-0.5); EOSINOPHILS % 0.6 % (0.0-7.0); HEMATOCRIT 37.5 % (42.0-52.0); HEMOGLOBIN 13.3 g/dl (14.0-18.0); LYMPHOCYTES # 1.4 10^3/ul (0.8-2.9); LYMPHOCYTES % 10.6 % (15.0-51.0); MEAN CORPUSCULAR HEMOGLOBIN 26.2 pg (29.0-33.0); MEAN CORPUSCULAR HGB CONC 35.5 g/dl (32.0-37.0); MONOCYTE # 0.9 10^3/ul (0.3-0.9); MONOCYTES % 6.7 % (0.0-11.0); NEUTROPHILS % 81.5 % (39.0-77.0); PLATELET COUNT 270 10^3/UL (140-415); RED BLOOD COUNT 5.07 10^6/ul (4.70-6.10); RED CELL DISTRIBUTION WIDTH 14.1 % (11.5-14.5); WHITE BLOOD COUNT 13.5 10^3/ul (4.8-10.8)
[2017-07-15 08:21] LABS: ALBUMIN 3.8 g/dl (3.3-4.9); BILIRUBIN,INDIRECT 0.7 mg/dl (0-1.1); BILIRUBIN,TOTAL 0.7 mg/dl (0.2-1.3); CALCIUM 8.7 mg/dl (8.4-10.2); CREATININE 0.91 mg/dl (0.61-1.24); MAGNESIUM 2.1 mg/dl (1.7-2.5); POTASSIUM 3.9 mmol/L (3.5-5.1); TOTAL PROTEIN 7.2 g/dl (6.1-8.1)
[2017-07-15] MEDS: HYDROCODONE/APAP (7.5/325) TAB PO PRN (09:36)
[2017-07-15] MEDS: SENNA TAB PO SCH ×2 (09:36→21:24)
[2017-07-15] MEDS: DOCUSATE SODIUM 100 MG CAP PO SCH ×2 (09:36→21:23)
[2017-07-15] MEDS ORDERED: BUPIVACAINE 0.25% (MPF) 30 ML INJ ONE (16:34)
--- NOTE | 2017-07-15 17:09 | CONS ---
Date/Time of Note Date/Time of Note DATE: 07/15/17 TIME: 17:05 Assessment/Plan Assessment/Plan Chief Complaint/Hosp Course 32-year-old male with acute appendicitis. This has been confirmed via CT scan. * Continue nothing by mouth * Broad-spectrum intravenous antibiotics * IV fluid hydration * Pain control Definitive treatment will consist of laparoscopic appendectomy; possible open. This has been explained to the patient along with all risks and benefits of the procedure. He fully understands and is agreeable to the treatment plan as outlined. Informed consent will be obtained and the patient will be scheduled for laparoscopic appendectomy; possible open Problems: Consultation Date/Type/Reason Admit Date/Time 07/15/17 Date of Consultation: Jul 15, 2017 Type of Consultation: General surgery Reason for Consultation Acute appendicitis Hx of Present Illness The patient is a 32-year-old gentleman presented to the emergency room complaining of 2 day history of abdominal pain. Pain initially was located in the epigastrium and then migrated towards the lower abdomen. He reports [address]-T diarrhea or constipation. He did have a low-grade temperature on arrival to the emergency room. He was also found to have a mild leukocytosis. A CT scan of the abdomen and pelvis showed findings consistent with acute appendicitis. A 14 point review of systems was conducted and was negative except for that which is mentioned in HPI Past Medical History Medical History: other (Migraine headache) Past Surgical History Past Surgical Hx: no surgical history Family History Significant Family History: no pertinent family hx Social History Alcohol Use: none Smoking Status: Light tobacco smoker Exam/Review of Systems Vital Signs Vitals Vital Signs Date Time Temp Pulse Resp B/P Pulse Ox O2 Delivery O2 Flow Rate FiO2 07/15/17 13:35 98.7 98 18 134/81 96 07/15/17 02:07 Room Air Intake and Output 07/14/17 07/14/17 07/15/17 15:00 23:00 07:00 Intake Total 225 ml Output Total 450 ml Balance -225 ml Exam GENERAL: Awake, alert, oriented x 3. No acute distress. SKIN: No jaundice. HEENT: PERRLA, EOMI, No Scleral Icterus NECK: Supple without JVD CARDIOVASCULAR: S1S2, regular rate and rhythm. No murmurs appreciated. RESPIRATORY: Clear to auscultation bilaterally. ABDOMEN: Soft, bowel sounds present, mildly distended. There is right lower quadrant tenderness to palpation with localized rebound. EXTREMITIES: Free range of motion x 4. No cyanosis, edema, or clubbing. NEUROLOGIC: Cranial nerves II-XII are intact. Sensation is intact grossly. Results Result Diagram: 07/15/17 0650 07/15/17 0650 Results 24 hrs Laboratory Tests Test 07/14/17 20:20 07/14/17 20:28 07/15/17 06:50 Urine Color STRAW Urine Clarity CLEAR Urine pH 6.0 Urine Specific [place] 1.011 Urine Ketones NEGATIVE Urine Nitrite NEGATIVE Urine Bilirubin NEGATIVE Urine Urobilinogen NEGATIVE Urine Leukocyte Esterase NEGATIVE Urine Microscopic RBC 30 H Urine Microscopic WBC 3 Urine Hemoglobin 2+ H Urine Glucose NEGATIVE Urine Total Protein NEGATIVE White Blood Count 14.9 #H 13.5 H Red Blood Count 5.46 5.07 Hemoglobin 14.4 13.3 L Hematocrit 40.1 L 37.5 L Mean Corpuscular Volume 73.4 L 74.0 L Mean Corpuscular Hemoglobin 26.4 L 26.2 L Mean Corpuscular Hemoglobin Concent 35.9 35.5 Red Cell Distribution Width 13.7 14.1 Platelet Count 284 270 Mean Platelet Volume 10.0 10.0 Neutrophils % 86.4 H 81.5 H Lymphocytes % 6.7 L 10.6 L Monocytes % 5.6 6.7 Eosinophils % 0.7 0.6 Basophils % 0.3 0.2 Nucleated Red Blood Cells % 0.0 0.0 Neutrophils # (Manual) 13 H 11 H Lymphocytes # 1.0 1.4 Monocytes # 0.8 0.9 Eosinophils # 0.1 0.1 Basophils # 0.0 0.0 Nucleated Red Blood Cells # 0.0 0.0 Sodium Level 142 141 Potassium Level 3.8 3.9 Chloride Level 95 L 98 Carbon Dioxide Level 29 28 Anion Gap 22 H 19 H Blood Urea Nitrogen 13 11 Creatinine 0.92 0.91 Glucose Level 104 100 Calcium Level 9.4 8.7 Total Bilirubin 0.4 0.7 Direct Bilirubin 0.00 0.00 Indirect Bilirubin 0.4 0.7 Aspartate Amino Transf (AST/SGOT) 25 21 Alanine Aminotransferase (ALT/SGPT) 35 32 Alkaline Phosphatase 119 97 Total Protein 8.2 H 7.2 # Albumin 4.3 3.8 Globulin 3.90 H Albumin/Globulin Ratio 1.10 Lipase 53 Magnesium Level 2.1 Medications Medications Current Medications Sodium Chloride (NS) 1,000 ml @ 125 mls/hr Q8H IV Last administered on 03:15; Admin Dose 125 MLS/HR; Start 07/15/17 at 00:30 Docusate Sodium (Colace) 100 mg BID PO Last administered on 07/15/17 09:36; Admin Dose 100 MG; Start 07/15/17 at 09:00 Senna 1 tab 1 tab BID PO Last administered on 07/15/17 09:36; Admin Dose 1 TAB ; Start 07/15/17 at 09:00 Levofloxacin/ Dextrose 100 ml @ 100 mls/hr Q24H IVPB Last administered on 07/15 03:15; Admin Dose 100 MLS/HR; Start 07/15/17 at 00:30 Metronidazole (Flagyl 500 Mg (Pmx)) 100 ml @ 100 mls/hr Q8 IVPB Last administered on 07/15/17 14:54; Admin Dose 100 MLS/HR; Start 07/15/17 at 06:00 Morphine Sulfate (morphine) 3 mg Q4H PRN IV pain; Start 07/15/17 at 00:30 Acetaminophen/ Hydrocodone Bitart ([place] (7.5-325)) 1 tab Q6H PRN PO breakthrough pain Last administered on 07/15/17 09:36; Admin Dose 1 TAB; Start 07/15/17 at 00:30 Ondansetron HCl (Zofran Inj) 4 mg Q6H PRN IV NAUSEA AND/OR VOMITING; Start at 00:30 Sumatriptan Succinate (Imitrex) 50 mg Q8H PRN PO MIGRAINE Last administered on 07/15/17 06:27; Admin Dose 50 MG; Start 07/15/17 at 06:00 Procedures Procedures PROCEDURE: CT Abdomen and pelvis with contrast. CLINICAL INDICATION: Abdominal pain. TECHNIQUE: CT scan of the abdomen and pelvis with contrast was performed on a multi-detector high-resolution CT scanner. The patient was scanned following the uncomplicated administration of 80 cc of Omnipaque 300 intravenous contrast. Coronal and sagittal reformatted images were obtained from the axial source images. Images were reviewed on a high-resolution PACS workstation. One or more of the following dose reduction techniques were used: - Automated exposure control. - Adjustment of the mA and/or kV according to patient size. - Use of iterative reconstruction technique. Exam CTD/vol = 14.77 mGy. Total exam DLP = 835.18 mGy-cm. COMPARISON: 07/10/2017. FINDINGS: Evaluation of the lung bases demonstrates mild bibasilar atelectasis. Abdomen: The liver is normal in size. There is no focal mass or dilatation of the biliary tree. The gallbladder is not distended. The spleen, pancreas and bilateral adrenal glands are within normal limits. Bilateral kidneys are normal in size with no focal renal mass identified. There is mild right-sided hydronephrosis with mild delayed right renal cortical enhancement. There is a calculus within the right mid ureter measuring 5 x 3 mm. There is no retroperitoneal adenopathy. The abdominal aorta is of normal caliber. There is a distended appendix extending medial to the cecum measuring up to 13 mm in diameter with mild adjacent stranding. There is moderate retained stool within the colon. There is no bowel obstruction or free air. There is no diverticulosis or diverticulitis. There is no ascites. Pelvis: The bladder is unremarkable. The prostate and seminal vesicles are within normal limits. There is no significant pelvic adenopathy or free fluid. Evaluation of the osseous structures demonstrates no suspicious lytic or blastic lesion. IMPRESSION: Right mid ureteral 5 x 3 mm calculus with mild right-sided hydronephrosis, unchanged from 07/10/2017. Acute appendicitis, new compared with the prior study. Moderate retained stool within the colon. Mild bibasilar atelectasis. A call report was made to Kathy Wen at 10:50 p.m. .Shad Purcell MD, MD Date Time Electronically viewed and signed by .Shad Purcell MD, MD on 07/14/2017 22:52 .T/ CC: KATHY WEN NP, MICHAEL A. MD Jul 15, 2017 17:09
[2017-07-15] MEDS ORDERED: FENTAnyl 50 MCG/ML VIAL ONE (17:13)
[2017-07-15] MEDS ORDERED: MIDAZOLAM 1 MG/ML 2 ML INJ ONE (17:13)
[2017-07-15] MEDS ORDERED: morphine 10 MG INJ ONE (17:25)
[2017-07-15] MEDS ORDERED: GLYCOPYRROLATE 0.4 MG INJ ONE (18:40)
[2017-07-15] MEDS ORDERED: LIDOCAINE 2% (SDV) 5 ML INJ ONE (18:40)
[2017-07-15] MEDS ORDERED: ROCURONIUM 50 MG INJ ONE (18:40)
[2017-07-15] MEDS ORDERED: PROPOFOL 20 ML ONE (18:40)
[2017-07-15] MEDS ORDERED: NEOSTIGMINE 3 MG/3 ML SYRINGE ONE (18:40)
[2017-07-15] MEDS ORDERED: ONDANSETRON 4 MG INJ ONE (18:41)
--- NOTE | 2017-07-15 18:45 | OPR ---
Date/Time of Note Date/Time of Note DATE: 07/15/17 TIME: 18:40 Operative Report Procedure Date: Jul 15, 2017 Preoperative Diagnosis Acute appendicitis with localized peritonitis Postoperative Diagnosis 1. Acute appendicitis with localized peritonitis 2. Peritoneal adhesions Operation Performed 1. Laparoscopic appendectomy 2. Laparoscopic lysis of adhesions Surgeon: RADHAMES TAYLOR MD Anesthesia Type: general Anesthesiologist: TOD WILL MD Estimated Blood Loss: minimal Transfusion Required: no Specimens Appendix Grafts/Implants: none Complications: no Pt Condition Post Procedure: stable Disposition: PACU Indications Patient is a 32-year-old male who presented to the emergency room complaining of a 2 day history of epigastric and lower abdominal pain. The patient had clinical signs and symptoms of acute appendicitis which was confirmed via CT scan. He was therefore admitted, kept nothing by mouth, started on broad-spectrum intravenous antibiotics and scheduled for laparoscopic appendectomy; possible open as definitive treatment. All risks and benefits of the procedure including but not limited to: Wound infection, excessive bleeding, injury to intra-abdominal organs, conversion to open procedure etc. were explained to the patient in full detail. The patient fully understood and wished to proceed with the procedure. Informed consent was therefore obtained. Operative\Procedure Findings Adhesions of the cecum to the right lower quadrant. Inflamed and indurated appendix. Procedure Description The patient was brought to the operating room and placed supine on the operating table. Bilateral sequential compression devices were placed on both lower extremities. The patient had been maintained on broad-spectrum intravenous antibiotics while an inpatient on the floor. After the induction of smooth general endotracheal anesthesia the patient's abdomen was prepped and draped in the standard surgical fashion. A 5 mm incision was made in the superior umbilicus and a Veress needle was used to access the intra-abdominal cavity atraumatically. Pneumoperitoneum was then obtained and the Veress needle was exchanged for a 5 mm trocar through which a 5 mm laparoscope was placed. Two further working ports were then placed, a 12 mm port in the midline suprapubic area and another 5 mm port midway between the suprapubic and umbilical port sites. All port sites were anesthetized with 0.25% Marcaine prior to incision. Diagnostic laparoscopy showed adhesions of the cecum to the right lower quadrant abdominal wall. Attention was then turned towards the right lower quadrant. The appendix was identified in the right lower quadrant. It appeared markedly indurated. There were adhesions to the surrounding structures. The appendix was diving down into the retroperitoneum. Laparoscopic lysis of adhesions was performed of the adhesions of the cecum to the right abdominal wall in order to be able to mobilize it and gain better exposure on the appendix. The adhesions of the appendix to the retroperitoneum were dissected using harmonic scalpel. The appendix was then able to be delivered into the field of vision. Mesoappendix was taken down to the level of the appendiceal base. The appendix was then transected at its base using a firing of the laparoscopic MELIA stapler. Once completely free the appendix was placed in an Endo Catch bag and withdrawn through the suprapubic port site and passed off the field as specimen. Hemostasis was then inspected for and noted to be adequate. The abdomen was then irrigated with copious amounts of warm normal saline and the irrigant returned crystal clear. The fascia of the suprapubic port site was then reapproximated using an Endo Close device and 0 Vicryl suture. Pneumoperitoneum was then released and all remaining trochars were withdrawn under direct vision. The subcutaneous tissues were irrigated with more warm normal saline and further local anesthesia was applied around the skin of the incision sites. The skin was then reapproximated using 4-0 Monocryl sutures in subcuticular fashion. The incisions were cleaned and Dermabond was applied and the patient was awoken from anesthesia and transported to the recovery room in stable condition. All counts were correct at the end of the case x 2. RADHAMES TAYLOR MD Jul 15, 2017 18:45
[2017-07-15] MEDS ORDERED: HYDROCODONE/APAP (5/325) TAB PO PRN (19:00)
[2017-07-15] MEDS ORDERED: ACETAMINOPHEN 325 MG TAB PO PRN (19:00)
[2017-07-15] MEDS ORDERED: morphine 2 MG INJ IV PRN (19:00)
[2017-07-15] MEDS ORDERED: KETOROLAC 30 MG INJ IV PRN (19:00)
[2017-07-15] MEDS ORDERED: HYDROmorphONE 1 MG/ML SYG IV STA (19:50)
[2017-07-15] MEDS ORDERED: HYDROmorphONE (0.2 MG/ML) 10ML SYG IV ONE (19:53)
[2017-07-16] MEDS: HYDROCODONE/APAP (7.5/325) TAB PO PRN ×2 (03:29→09:38)
[2017-07-16 05:25] VITALS: BP 125/73; PULSE 73; RESP 18
[2017-07-16 05:36] LABS: BASOPHILS % 0.2 % (0.0-2.0); EOSINOPHILS % 0.2 % (0.0-7.0); HEMATOCRIT 36.6 % (42.0-52.0); LYMPHOCYTES # 1.1 10^3/ul (0.8-2.9); LYMPHOCYTES % 10.1 % (15.0-51.0); MEAN CORPUSCULAR HEMOGLOBIN 26.4 pg (29.0-33.0); MEAN CORPUSCULAR HGB CONC 35.5 g/dl (32.0-37.0); MEAN CORPUSCULAR VOLUME 74.2 fl (82.0-101.0); MONOCYTE # 0.7 10^3/ul (0.3-0.9); MONOCYTES % 6.1 % (0.0-11.0); PLATELET COUNT 238 10^3/UL (140-415); RED BLOOD COUNT 4.93 10^6/ul (4.70-6.10); RED CELL DISTRIBUTION WIDTH 13.8 % (11.5-14.5); WHITE BLOOD COUNT 11.2 10^3/ul (4.8-10.8)
[2017-07-16 05:47] LABS: MAGNESIUM 1.8 mg/dl (1.7-2.5); PHOSPHORUS 3.7 mg/dl (2.5-4.9)
[2017-07-16 05:56] LABS: CALCIUM 8.4 mg/dl (8.4-10.2); CREATININE 0.93 mg/dl (0.61-1.24); POTASSIUM 3.8 mmol/L (3.5-5.1)
[2017-07-16] MEDS: metroNIDAZOLE 500 MG/NS (PMX) 100 ML IVPB SCH ×2 (06:01→13:59)
[2017-07-16 07:58] VITALS: BP 127/80; RESP 18
[2017-07-16] MEDS: SOD CHLORIDE 0.9% 1,000 ML IV SCH (08:30)
[2017-07-16 09:03] LABS: THYROID STIMULATING HORMONE 0.361 MIU/L (0.465-4.680)
[2017-07-16] MEDS: DOCUSATE SODIUM 100 MG CAP PO SCH (09:37)
[2017-07-16] MEDS: SENNA TAB PO SCH (09:38)
--- NOTE | 2017-07-16 12:24 | PN ---
Date/Time of Note Date/Time of Note DATE: 07/16/17 TIME: 12:23 Assessment/Plan VTE Prophylaxis VTE Prophylaxis Intervention: ambulation, SCD's Lines/Catheters IV Catheter Type (from Nrsg): Peripheral IV Assessment/Plan Chief Complaint/Hosp Course 1. Acute appendicitis with localized peritonitis. Status post laparoscopic appendectomy and laparoscopic lysis of adhesions on 07/15/2017. Continue pain control. Continue antibiotics. Encourage frequent ambulation and frequent use of incentive spirometry. 2. Migraine headaches. Continue as needed triptan's. 3. Obesity. BMI of 33.7 kg/m. Weight reduction advised. Fasting lipid panel satisfactory. Hemoglobin A1c within normal limits. 4. Nephrolithiasis. Continue IV hydration. Urinalysis negative for any UTI. 5. Fluids, electrolytes, and nutrition. Regular diet. 6. DVT prophylaxis. Ambulation. Bilateral sequential compression devices. 6. Plan. Continue antimicrobials. Encourage frequent ambulation and frequent use of incentive spirometry. Continue pain control. Await clearance from surgeon before discharge. Case discussed with . Problems: Subjective 24 Hr Interval Summary Free Text/Dictation Abdominal pain well controlled. Complains of headache. Tolerating regular diet. Exam/Review of Systems Vital Signs Vitals Vital Signs Date Time Temp Pulse Resp B/P Pulse Ox O2 Delivery O2 Flow Rate FiO2 07/16/17 07:58 99.6 84 18 127/80 98 07/16/17 05:25 Room Air 2.0 Nasal Cannula Intake and Output 07/15/17 07/15/17 07/16/17 15:00 23:00 07:00 Intake Total 3000 ml 1350 ml Output Total 1025 ml 1250 ml Balance 1975 ml 100 ml Exam General: Adequately build 32 year-old male lying in bed in no apparent distress. HEENT: Normocephalic, atraumatic. Eyes: Anicteric sclerae, conjunctivae clear. ENT: Nasal septum midline, oral mucosa moist. Neck supple, no JVD noticed. Respiratory: Bilaterally clear breath sounds. No use of accessory muscles of respiration. No adventitious breath sounds. Cardiovascular: S1, S2 heard. No murmurs or gallops. Abdomen: Soft and nondistended. Bowel sounds positive in all 4 quadrants. Laparoscopic incision sites clean, dry, and intact. Genitourinary: Deferred. Extremities: No cyanosis, no clubbing, no edema. Peripheral pulses palpable. Neurologic: Cranial nerves II through XII grossly intact. The patient is awake, alert, and oriented. Skin: Normal skin turgor. No skin rashes. Results Result Diagram: 07/16/1742207/16/17422 Results 24 hrs Laboratory Tests Test 07/16/17 04:23 White Blood Count 11.2 H Red Blood Count 4.93 Hemoglobin 13.0 L Hematocrit 36.6 L Mean Corpuscular Volume 74.2 L Mean Corpuscular Hemoglobin 26.4 L Mean Corpuscular Hemoglobin Concent 35.5 Red Cell Distribution Width 13.8 Platelet Count 238 Mean Platelet Volume 10.0 Neutrophils % 83.0 H Lymphocytes % 10.1 L Monocytes % 6.1 Eosinophils % 0.2 Basophils % 0.2 Nucleated Red Blood Cells % 0.0 Neutrophils # (Manual) 9 H Lymphocytes # 1.1 Monocytes # 0.7 Eosinophils # 0.0 Basophils # 0.0 Nucleated Red Blood Cells # 0.0 Sodium Level 136 Potassium Level 3.8 Chloride Level 100 Carbon Dioxide Level 26 Anion Gap 14 Blood Urea Nitrogen 9 Creatinine 0.93 Glucose Level 103 Hemoglobin A1c 5.1 Calcium Level 8.4 Phosphorus Level 3.7 Magnesium Level 1.8 Triglycerides Level 66 Cholesterol Level 162 LDL Cholesterol, Calculated 95 HDL Cholesterol 54 Cholesterol/HDL Ratio 3.0 Thyroid Stimulating Hormone (TSH) 0.361 L Free Thyroxine 1.21 Medications Medications Current Medications Sodium Chloride (NS) 1,000 ml @ 125 mls/hr Q8H IV Last administered on 21:26; Admin Dose 125 MLS/HR; Start 07/15/17 at 00:30 Docusate Sodium (Colace) 100 mg BID PO Last administered on 07/16/17 09:37; Admin Dose 100 MG; Start 07/15/17 at 09:00 Senna 1 tab 1 tab BID PO Last administered on 07/16/17 09:38; Admin Dose 1 TAB ; Start 07/15/17 at 09:00 Levofloxacin/ Dextrose 100 ml @ 100 mls/hr Q24H IVPB Last administered on 07/15 23:51; Admin Dose 100 MLS/HR; Start 07/15/17 at 00:30 Metronidazole (Flagyl 500 Mg (Pmx)) 100 ml @ 100 mls/hr Q8 IVPB Last administered on 07/16/17 06:01; Admin Dose 100 MLS/HR; Start 07/15/17 at 06:00 Morphine Sulfate (morphine) 3 mg Q4H PRN IV pain Last administered on 23:51; Admin Dose 3 MG; Start 07/15/17 at 00:30 Acetaminophen/ Hydrocodone Bitart ([place] (7.5-325)) 1 tab Q6H PRN PO breakthrough pain Last administered on 07/16/17 09:38; Admin Dose 1 TAB; Start 07/15/17 at 00:30 Ondansetron HCl (Zofran Inj) 4 mg Q6H PRN IV NAUSEA AND/OR VOMITING; Start at 00:30 Sumatriptan Succinate (Imitrex) 50 mg Q8H PRN PO MIGRAINE Last administered on 07/15/17 06:27; Admin Dose 50 MG; Start 07/15/17 at 06:00 Acetaminophen (Tylenol Tab) 650 mg Q6H PRN PO PAIN LEVEL 1-3 OR FEVER; Start at 19:00 Ketorolac Tromethamine (Toradol) 30 mg Q6H PRN IV PAIN; Start 07/15/17 at 19:00 ; Stop 07/18/17 at 18:59 Morphine Sulfate (morphine) 2 mg Q4 PRN IV PAIN LEVEL 8-10; Start 07/15/17 at 19:00 Acetaminophen/ Hydrocodone Bitart ([place] (5/325)) 1 tab Q6H PRN PO PAIN LEVEL 4 -7; Start 07/15/17 at 19:00 WINSTON SESAY NP Jul 16, 2017 12:23
[2017-07-16] MEDS ORDERED: ACET/BUTAL/CAFF TAB PO PRN (12:30)
[2017-07-16 12:43] VITALS: BP 133/82; RESP 18
--- NOTE | 2017-07-16 14:52 | PN ---
Date/Time of Note Date/Time of Note DATE: 07/16/17 TIME: 14:46 Assessment/Plan Lines/Catheters IV Catheter Type (from Nrs): Peripheral IV Assessment/Plan Assessment/Plan 32-year-old male status post laparoscopic appendectomy postop day #1 * Surgically stable for discharge home when medically cleared * Follow-up in office in 2 weeks Subjective 24 Hr Interval Summary Doing well. Abdominal pain control. Tolerating diet. Ambulating. Afebrile. Exam/Review of Systems Vital Signs Vitals Vital Signs Date Time Temp Pulse Resp B/P Pulse Ox O2 Delivery O2 Flow Rate FiO2 07/16/17 12:43 99.2 77 18 133/82 96 07/16/17 05:25 Room Air 2.0 Nasal Cannula Intake and Output 07/15/17 07/15/17 07/16/17 15:00 23:00 07:00 Intake Total 3000 ml 1350 ml Output Total 1025 ml 1250 ml Balance 1975 ml 100 ml Exam Free Text/Dictation GENERAL: Awake, alert, oriented x 3. No acute distress. CARDIOVASCULAR: S1S2, regular rate and rhythm. No murmurs appreciated. RESPIRATORY: Clear to auscultation bilaterally. ABDOMEN: Soft, bowel sounds present, appropriate incisional tenderness to palpation. INCISIONS: Clean, dry, intact EXTREMITIES: Free range of motion x 4. No cyanosis, edema, or clubbing. Results Result Diagram: 07/16/17 0423 07/16/17 0423 RADHAMES TAYLOR MD Jul 16, 2017 14:52
--- NOTE | 2017-07-16 16:03 | PDOCDIS ---
Discharge Instructions DIAGNOSIS Discharge Diagnosis Appendicitis. Status post laparoscopic appendectomy. CONDITION Patient Condition: Stable ACTIVITY: Activity Restrictions: Avoid heavy lifting Avoid Heavy Housework FOLLOW UP/APPOINTMENTS Follow-up Plan John Guajardo MD Specialty General Surgery Office Address [id number] [place] [address] [place] [address] Office OTHER ORDERS: Other Orders: 1. Regular diet as tolerated. 2. Keep incisions clean and dry. May shower. Avoid tub baths and swimming for 2 weeks. Use mild soap and pat dry the incisions. 3. Take medications as needed for pain. 4. Call the surgeon or go to the nearest ER if you have severe abdominal pain despite pain medications. 5. Call the surgeon or go to the nearest ER if you notice any bleeding or secretions coming out of the incision sites. Also call the surgeon if you notice any blood in stool, if you have persistent fevers, or any other unusual signs or symptoms. 6. Follow-up with the surgeon Dr. Guajardo in 7-14 days for incision check. 7. Avoid heavy lifting [more than 25 pounds] for 8 weeks. SCHOOL/WORK RELEASE May return to School/Work on: Jul 20, 2017 May return to School/Work with: With Restrictions (No heavy lifting greater than 25 pounds for 8 weeks.) WINSTON SESAY NP Jul 16, 2017 16:02
[2017-07-16] MEDS ORDERED: METR500T14 PO (16:06)
[2017-07-16] MEDS ORDERED: LEVO500T72 PO (16:06)
[2017-07-16] MEDS ORDERED: HYDR-3605 PO (16:06)
[2017-07-16] MEDS ORDERED: DOCU-144 PO (16:07)
--- NOTE | 2017-07-16 16:26 | DS ---
Date/Time of Note Date/Time of Note DATE: 07/16/17 TIME: 16:25 Discharge Summary Admission/Discharge Info Admit Date/Time Jul 14, 2017 at 23:37 Discharge Date/Time Discharge Diagnosis 1. Acute appendicitis with localized peritonitis. Status post laparoscopic appendectomy and laparoscopic lysis of adhesions on 07/15/2017. 2. Migraine headaches. 3. Obesity. BMI of 33.7 kg/m. 4. Nephrolithiasis. Patient Condition: Stable Consults John Guajardo MD, General Surgery. Procedures CT Scan of the Abdomen and Pelvis IMPRESSION: Right mid ureteral 5 x 3 mm calculus with mild right-sided hydronephrosis, unchanged from 07/10/2017. Acute appendicitis, new compared with the prior study. Moderate retained stool within the colon. Mild bibasilar atelectasis. Procedure Date: Jul 15, 2017 Preoperative Diagnosis Acute appendicitis with localized peritonitis Postoperative Diagnosis 1. Acute appendicitis with localized peritonitis 2. Peritoneal adhesions Operation Performed 1. Laparoscopic appendectomy 2. Laparoscopic lysis of adhesions Hx of Present Illness 32-year-old male who had presented to the emergency room with because of epigastric pain that has localized to his right lower quadrant over 2 days. He was diagnosed with kidney stone 4 days ago in this emergency room and was sent home with pain medications which did not help this new pain. Patient reports pain is not the same as before. A CT scan in the emergency room did confirm the presence of kidney stones but also shows acute appendicitis. Patient was admitted for surgical review and possible appendectomy and evaluation of kidney stone and hydronephrosis. Hospital Course The patient was admitted to inpatient setting. A general surgery consult was obtained. The patient was kept n.p.o. He was provided with adequate pain control. The patient was started on empiric antibiotics. The patient underwent a laparoscopic appendectomy with laparoscopic lysis of adhesions on . Postoperatively, the patient was started on an appropriate diet and the patient was able to tolerate a regular consistency diet without any significant gastrointestinal symptoms. The patient was encouraged on frequent ambulation and frequent use of incentive spirometry. The patient was continued on IV antibiotics since the patient had evidence of localized peritonitis. The patient was recently diagnosed with nephrolithiasis. The patient was continued on IV hydration. The patient was on Flomax at home because of nephrolithiasis. This will be resumed upon discharge. The patient's current CT scan showed evidence of mild right hydronephrosis. The patient also had episodes of migraine headache during the hospital course which was treated with analgesics and triptan's. Patient was also noticed to have obesity with a BMI of 33.7 kg/m. The patient's hemoglobin A1c was within normal limits. The patient's fasting lipid panel was satisfactory. The patient had a stable hospital course. The patient was cleared by general surgery to be discharged home. The patient was able tolerate a regular consistency diet without any significant gastrointestinal symptoms. Discharge Instructions 1. Regular diet as tolerated. 2. Keep incisions clean and dry. May shower. Avoid tub baths and swimming for 2 weeks. Use mild soap and pat dry the incisions. 3. Take medications as needed for pain. 4. Call the surgeon or go to the nearest ER if you have severe abdominal pain despite pain medications. 5. Call the surgeon or go to the nearest ER if you notice any bleeding or secretions coming out of the incision sites. Also call the surgeon if you notice any blood in stool, if you have persistent fevers, or any other unusual signs or symptoms. 6. Follow-up with the surgeon Dr. Guajardo in 7-14 days for incision check. 7. Avoid heavy lifting [more than 25 pounds] for 8 weeks. The patient verbalized understanding of his discharge instructions. At this time I would like to thank Dr. Guajardo for seeing the patient, doing the necessary procedures, and providing clinical recommendations. Case discussed with Dr. Thornton,. Home Meds Active Scripts Tamsulosin Hcl* (Tamsulosin Hcl*) 0.4 Mg Cap.er.24h, 0.4 MG PO DAILY, #20 CAP Prov:WINSTON SESAY NP 07/16/17 Docusate Sodium* (Colace*) 100 Mg Capsule, 100 MG PO BID, #20 CAP Prov:WINSTON SESAY NP 07/16/17 Metronidazole* (Metronidazole*) 500 Mg Tablet, 500 MG PO Q8, #21 TAB Prov:WINSTON SESAY NP 07/16/17 Levofloxacin* (Levaquin*) 500 Mg Tablet, 500 MG PO DAILY, #7 TAB Prov:WINSTON SESAY NP 07/16/17 Hydrocodone/Acetaminophen (Hydrocodon-Acetaminoph 7.5-325) 1 Each Tablet, 1 TAB PO Q6H Y for breakthrough pain, #20 TAB Prov:WINSTON SESAY NP 07/16/17 Discontinued Scripts Ondansetron Hcl* (Zofran*) 4 Mg Tab, 4 MG PO Q4H Y for NAUSEA AND OR VOMITING, # 15 TAB Prov:MONO ROQUE 07/10/17 Tamsulosin Hcl* (Flomax*) 0.4 Mg Cap.er.24h, 0.4 MG PO HS for 5 Days, CAP Prov:MONO ROQUE 07/10/17 Hydrocodone/Acetaminophen ([place] 5-325 Tablet) 1 Each Tablet, 1 TAB PO Q6H Y for PAIN, #7 TAB Prov:MONO ROQUE 07/10/17 Ibuprofen* (Motrin*) 600 Mg Tab, 600 MG PO Q6, #30 TAB Prov:MONO ROQUE 07/10/17 Ondansetron (Ondansetron Odt) 4 Mg Tab.rapdis, 4 MG PO Q8 Y for NAUSEA AND/OR VOMITING, #30 TAB Prov:ARI WEN NP 04/09/17 Ibuprofen* (Motrin*) 600 Mg Tab, 600 MG PO Q6H Y for PAIN AND OR ELEVATED TEMP, #30 TAB Prov:ARI WEN NP 04/09/17 Dicyclomine Hcl* (Bentyl*) 10 Mg Capsule, 10 MG PO QID, #20 CAP Prov:ARI WEN NP 04/09/17 Azithromycin* (Zithromax*) 250 Mg Tablet, 250 MG PO DAILY for 4 Days, TAB Prov:MICAELA ODELL MD 11/19/16 Ibuprofen* (Motrin*) 600 Mg Tab, 600 MG PO Q8, #30 TAB Prov:MICAELA ODELL MD 11/19/16 Acetaminophen* (Tylenol*) 325 Mg Tablet, 2 TAB PO Q8 Y for PAIN AND OR ELEVATED TEMP, #20 TAB Prov:MICAELA ODELL MD 11/19/16 Omeprazole* (Omeprazole*) 20 Mg Capsule.dr, 20 MG PO DAILY, #20 Prov:RALPH TAYLOR NP 08/23/16 Hydrocodone/Acetaminophen ([place] 5-325 Tablet) 1 Each Tablet, 1 TAB PO Q6H Y for PAIN, #7 TAB Prov:RALPH TAYLOR NP 08/23/16 Ibuprofen* (Motrin*) 600 Mg Tab, 600 MG PO Q6, #20 TAB Prov:RALPH TAYLOR Jen SANCHEZ 08/23/16 Ibuprofen* (Ibuprofen*) 200 Mg Capsule, 200 MG PO Q6, #30 CAP 0 Refills Prov:ELEAZAR CARRILLO PA-C 11/11/15 Acetaminophen (Tylenol) 500 Mg Tab, 500 MG PO Q6, #30 TAB 0 Refills Prov:ELEAZAR CARRILLO PA-C 11/11/15 Ondansetron Hcl* (Zofran* ODT) 4 mg -ODT Tab.disper, 4 MG PO DAILY Y for NAUSEA AND/OR VOMITING, #10 TAB 0 Refills Prov:ELEAZAR CARRILLO PA-C 11/11/15 Follow-up Plan Follow-up with Dr. Guajardo in 1-2 weeks. Primary Care Provider Care Physician No Primary Time spent on discharge: > 30 minutes Pending Labs Laboratory Tests Test 07/16/17 04:23 White Blood Count 11.210^3/ul (4.8-10.8) Red Blood Count 4.9310^6/ul (4.70-6.10) Hemoglobin 13.0g/dl (14.0-18.0) Hematocrit 36.6% (42.0-52.0) Mean Corpuscular Volume 74.2fl (82.0-101.0) Mean Corpuscular Hemoglobin 26.4pg (29.0-33.0) Mean Corpuscular Hemoglobin Concent 35.5g/dl (32.0-37.0) Red Cell Distribution Width 13.8% (11.5-14.5) Platelet Count 35498^3/UL (140-415) Mean Platelet Volume 10.0fl (7.4-10.4) Neutrophils % 83.0% (39.0-77.0) Lymphocytes % 10.1% (15.0-51.0) Monocytes % 6.1% (0.0-11.0) Eosinophils % 0.2% (0.0-7.0) Basophils % 0.2% (0.0-2.0) Nucleated Red Blood Cells % 0.0/100WBC (0.0-0.0) Neutrophils # (Manual) 910^3/ul (1.7-7.5) Lymphocytes # 1.110^3/ul (0.8-2.9) Monocytes # 0.710^3/ul (0.3-0.9) Eosinophils # 0.010^3/ul (0.0-0.5) Basophils # 0.010^3/ul (0.0-0.1) Nucleated Red Blood Cells # 0.010^3/ul (0.0-0.0) Sodium Level 136mmol/L (135-144) Potassium Level 3.8mmol/L (3.5-5.1) Chloride Level 100mmol/L (97-110) Carbon Dioxide Level 26mmol/L (21-31) Anion Gap 14 (8-16) Blood Urea Nitrogen 9mg/dl (7-20) Creatinine 0.93mg/dl (0.61-1.24) Glucose Level 103mg/dl (70-220) Hemoglobin A1c 5.1% (0-5.9) Calcium Level 8.4mg/dl (8.4-10.2) Phosphorus Level 3.7mg/dl (2.5-4.9) Magnesium Level 1.8mg/dl (1.7-2.5) Triglycerides Level 66mg/dl (0-149) Cholesterol Level 162mg/dl (100-200) LDL Cholesterol, Calculated 95mg/dl HDL Cholesterol 54mg/dl (28-63) Cholesterol/HDL Ratio 3.0RATIO Thyroid Stimulating Hormone (TSH) 0.361MIU/L (0.465-4.680) Free Thyroxine 1.21ng/dl (0.79-2.35) WINSTON SESAY NP Jul 16, 2017 16:26 WINSTON SESAY NP Jul 16, 2017 16:26
[2017-07-16] MEDS ORDERED: TAMS0.4C2 PO (16:27)
== END 2017-07-16 18:30 | disposition home or self-care (01) | DRG 336 ==
LOC: FTE 18:37 → MS1 23:37
PROVIDERS: ADMIT Family Medicine; ATTEND Family Medicine
PROC: 0DNW4ZZ Release Peritoneum, Percutaneous Endoscopic Approach (ICD-10-PCS; 2017-07-15)
PROC: 0DTJ4ZZ Resection of Appendix, Percutaneous Endoscopic Approach (ICD-10-PCS; principal; 2017-07-15 16:30)
DX: K35.3 Acute appendicitis with localized peritonitis (principal); N13.2 Hydronephrosis with renal and ureteral calculous obstruction; K66.0 Peritoneal adhesions (postprocedural) (postinfection); G43.909 Migraine, unspecified, not intractable, without status migrainosus; Z72.0 Tobacco use; E66.9 Obesity, unspecified; Z68.33 Body mass index [BMI] 33.0-33.9, adult
CPT/HCPCS: 36415; 74177; 80048; 80053; 80061; 80076; 81001; 83036; 83690; 83735; 84100; 84439; 84443; 85025; 88304; 96374; 96375; J1170; J1885; J1956; J2250; J2270; J2405; J2543; J2710; J3010; J7030; Q9967